=== PATIENT | female | born 1995 | race Caucasian/White ===

== ENCOUNTER → 2020-01-26 | Outpatient (CLI) | payer OTHER, SELFPAY | END | disposition home or self-care (01) | PROVIDERS: PCP Family Medicine; Referring Provider Family Medicine; Visit Provider Family Medicine | DX: Z20.828 Contact with and (suspected) exposure to other viral communicable diseases (principal) | CPT/HCPCS: 87635; U0003 ==

== ENCOUNTER → 2020-09-09 | Outpatient (CLI) | payer BC, OTHER, SELFPAY ==
[2020-09-12 16:34] LABS: HPV APTIMA, High Risk Negative (Negative)
[2020-09-12 16:35] LABS: HPV Reflexed? YES, CHARGE PATIENT
== END | disposition home or self-care (01) ==
PROVIDERS: PCP Family Medicine; Visit Provider Nurse Practitioner Family
DX: Z01.419 Encounter for gynecological examination (general) (routine) without abnormal findings (principal)
CPT/HCPCS: 87624; 88175; G0145

== ENCOUNTER → 2020-09-19 08:08 | Outpatient (CLI) | payer BC, OTHER, SELFPAY ==
[2020-09-19 10:29] LABS: Anion Gap 8 (5-15); BUN 14 mg/dL (7-18); BUN/Creat Ratio 18.1 RATIO (10-20); Chloride 105 mmol/L (98-107); Cholesterol 225 mg/dL (200); Creatinine, Serum 0.77 mg/dL (0.55-1.02); EST Glomerular Filtration Rate 96 mL/min (>60); Est Glom Filt Rate - Afr Amer 116 mL/min (>60); Glucose 97 mg/dL (74-106); High Density Lipoprotein 52 mg/dL; Potassium 3.9 mmol/L (3.5-5.1); Sodium Level 139 mmol/L (136-145); Triglycerides 56 mg/dL; Very Low Density Lipoprotein 11 mg/dL (5-40)
== END ==
PROVIDERS: PCP Family Medicine; Referring Provider Family Medicine; Visit Provider Nurse Practitioner Family
DX: Z13.1 Encounter for screening for diabetes mellitus (principal); Z13.220 Encounter for screening for lipoid disorders
CPT/HCPCS: 36415; 80048; 80061

== ENCOUNTER → 2022-02-26 | Outpatient (CLI) | payer BC, SELFPAY ==
[2022-02-26 17:45] LABS: Amphetamine Urine VISTA NEGATIVE (<1000 ng/mL); Barbiturate Urine VISTA NEGATIVE (< 200 ng/mL); Benzodiazepine Urine VISTA NEGATIVE (< 200 ng/mL); Cocaine Urine VISTA NEGATIVE (< 300 ng/mL); Ecstacy Urine VISTA NEGATIVE (< 500 ng/mL); Methadone Urine VISTA NEGATIVE (< 300 ng/mL); PCP Urine VISTA NEGATIVE (< 25 ng/mL); THC Urine VISTA NEGATIVE (< 50 ng/mL); Vista UDS pH Range 6
[2022-03-02 21:07] LABS: Chlamydia By Nucleic Acid AMP Negative (Negative)
[2022-03-03 14:18] LABS: Gonococcus By Nucleic Acid AMP Negative (Negative)
[2022-03-06 11:10] LABS: HPV Reflexed? NOT INDICATED
== END | disposition home or self-care (01) ==
LOC: LABSPEC 16:55
PROVIDERS: PCP Family Medicine; Visit Provider Obstetrics & Gynecology
DX: Z34.00 Encounter for supervision of normal first pregnancy, unspecified trimester (principal); Z12.4 Encounter for screening for malignant neoplasm of cervix
CPT/HCPCS: 80307; 87086; 87088; 87491; 87591; 88175; G0145

== ENCOUNTER → 2022-03-17 | Outpatient (CLI) | payer BC, SELFPAY ==
--- NOTE | 2022-03-17 15:07 | US_ITS ---
STUDY: FIRST TRIMESTER OBSTETRICAL ULTRASOUND REASON FOR EXAM: Female, 26 years old. well being. Viability. Intermittent vaginal spotting. LMP: Established LMP of December 14, 2021. TECHNIQUE: Transabdominal TECHNICAL QUALITY: Examination limited by bowel gas. PRIOR ULTRASOUND: None. FINDINGS: There is visualization of a single gestational sac in a normal intrauterine position. The mean sac diameter (MSD) measures 5.8 cm, indicating an estimated gestational age (EGA) of 11 weeks, 6 days. The gestational sac shape is within normal limits. There is no demonstrated yolk sac. There is visualization of the placenta. The placenta is posterior in location and grade 0 in appearance. There is visualization of a live embryo. The crown-rump length (CRL) measures 7.05 cm, indicating an estimated gestational age (EGA) of 13 weeks, 2 days. There is demonstrated cardiac activity with a heart rate of 153 bpm. The estimated gestation age (EGA) by LMP is 13 weeks, 2 days. The estimated date of delivery (MARCO) by LMP is September 20, 2022. The estimated gestation age (EGA) by US is 12 weeks, 4 days. The estimated date of delivery (MARCO) by US is September 25, 2022. The uterus measures 10.6 x 8.5 x 8.0 cm. There is no demonstrated uterine fibroid. The cervix is closed. The right ovary measures 3.9 x 4.1 x 4.5 cm. There is a 3.2 x 2.8 x 3.5 cm cyst. Question corpus luteum cyst. There is no visualized right adnexal mass or complex lesion. Oral vascularity and Doppler imaging. The left ovary is obscured by bowel gas. There is no visualized left adnexal mass or complex lesion. There is no fluid in the cul de sac. US/Init OB < 14Wks US IMPRESSION: 1. Live single intrauterine at 12 weeks 4 days. MARCO is September 25, 2022. 2. heart rate of 153 bpm. 3. Posterior grade 0 placenta. 4. Question right ovarian corpus luteum cyst. Electronically Signed: Jaden Vergara DO at 16:38 EST Reading Location ID and State: [facility] / [place] Tel [phone], Service support ,
[2022-03-17 15:17] LABS: Absolute Lymphocyte Count 1.77 X10^3/uL (0.83-4.51); Absolute Neutrophil Count 7.5 X10^3/uL (2.0-7.7); Basophil# 0.03 X10^3/uL; Basophil% 0.3 % (0-1); Eosinophil# 0.06 X10^3/uL; Eosinophils% 0.6 % (0-5); Hematocrit 39.7 % (37-47); Hemoglobin 13.7 g/dL (12.0-15.0); Lymphocyte # 1.77 X10^3/ul (0.83-4.51); Lymphocyte % 17.9 % (19-41); Mean Corp Hgb Conc 34.5 g/dL (32-36); Mean Corpuscular Hgb 30.8 pg (27.0-32.0); Mean Corpuscular Volume 89.2 fL (81-99); Mean Platelet Vol. 10.7 fl (6.2-12.0); Monocyte# 0.51 X10^3/uL; Monocyte% 5.2 % (0-10); NRBC Flagged by Analyzer 0 % (0-5); Neutrophil % 75.7 % (47-70); Platelet Count 267 K/mm3 (150-450); RBC Distribution Width CV 13.2 % (11.6-14.6); RBC Distribution Width SD 43.5 fl (35.1-43.9); Red Blood Count 4.45 M/mm3 (4.2-5.4); White Blood Count 9.9 K/mm3 (4.4-11.0)
[2022-03-17 15:26] LABS: Glucose Challenge Gest 1H 50g 107 mg/dL (70-140)
[2022-03-17 15:43] LABS: NATERA MAILED SPECIMEN
[2022-03-17 16:54] LABS: HIV - WCH Non-Reactive (Nonreactive); Hepatitis B Surface Antigen Non-Reactive (Nonreactive); Hepatitis C Antibody Non-Reactive (Nonreactive); Rubella IgG Reactive (Nonreactive); Syphilis Antibodies Non-reactive
== END | disposition home or self-care (01) ==
LOC: US 14:41
PROVIDERS: Obstetrics & Gynecology; PCP Family Medicine; Referring Provider Nurse Practitioner Women's Health; Visit Provider Nurse Practitioner Women's Health
DX: Z31.430 Encounter of female for testing for genetic disease carrier status for procreative management (principal); O26.859 Spotting complicating pregnancy, unspecified trimester; Z3A.00 Weeks of gestation of pregnancy not specified
CPT/HCPCS: 36415; 76801; 82950; 85025; 86703; 86762; 86780; 86803; 86850; 86900; 86901; 87340

== ENCOUNTER → 2022-06-18 | Outpatient (CLI) | payer BC, SELFPAY ==
[2022-06-18 08:13] LABS: Absolute Lymphocyte Count 1.65 X10^3/uL (0.83-4.51); Basophil# 0.04 X10^3/uL; Basophil% 0.4 % (0-1); Hematocrit 38.9 % (37-47); Hemoglobin 12.7 g/dL (12.0-15.0); Lymphocyte # 1.65 X10^3/ul (0.83-4.51); Lymphocyte % 15.8 % (19-41); Mean Corp Hgb Conc 32.6 g/dL (32-36); Mean Corpuscular Hgb 30.3 pg (27.0-32.0); Mean Corpuscular Volume 92.8 fL (81-99); Mean Platelet Vol. 10.8 fl (6.2-12.0); Monocyte# 0.55 X10^3/uL; Monocyte% 5.3 % (0-10); NRBC Flagged by Analyzer 0 % (0-5); Neutrophil % 76.5 % (47-70); Platelet Count 261 K/mm3 (150-450); RBC Distribution Width CV 13.5 % (11.6-14.6); RBC Distribution Width SD 45.8 fl (35.1-43.9); Red Blood Count 4.19 M/mm3 (4.2-5.4); White Blood Count 10.4 K/mm3 (4.4-11.0)
[2022-06-18 08:47] LABS: Glucose Challenge Gest 1H 50g 120 mg/dL (70-140)
[2022-06-18 09:22] LABS: HIV - WCH Non-Reactive (Nonreactive); Syphilis Antibodies Non-reactive
== END | disposition home or self-care (01) ==
LOC: PAVLAB 07:46
PROVIDERS: PCP Family Medicine; Referring Provider Obstetrics & Gynecology; Visit Provider Obstetrics & Gynecology
DX: Z34.00 Encounter for supervision of normal first pregnancy, unspecified trimester (principal); Z13.1 Encounter for screening for diabetes mellitus
CPT/HCPCS: 36415; 82950; 85025; 86703; 86780

== ENCOUNTER → 2022-08-28 | Outpatient (CLI) | payer BC, SELFPAY | END | disposition home or self-care (01) | PROVIDERS: PCP Family Medicine; Visit Provider Advanced Practice Midwife | DX: Z34.00 Encounter for supervision of normal first pregnancy, unspecified trimester (principal) | CPT/HCPCS: 87081 ==

== ENCOUNTER 2022-09-21 13:25 | Inpatient (IN) | payer BC, SELFPAY ==
[2022-09-21] VITALS (49 sets, daily range): BP systolic 80–189; BP diastolic 49–134; PULSE 65–231; TEMP 35.7–36.9; O2SAT 80–100; BMI 34.8
[2022-09-21 13:12] LABS: ROM Internal Control Test YES-OK TO RESULT pt. (Internal QC); Record Kit Lot#, ROM+ K1374
[2022-09-21 13:15] LABS: ROM Patient Test POSITIVE (Negative)
[2022-09-21] MEDS: Lactated Ringers 1,000 ML 50 ML IV ×2 (14:15→21:50)
--- NOTE | 2022-09-21 14:36 | HP.PCM.OB_ITS ---
HPI - General General Date of Admission: 09/21/22 HPI Narrative NICOLETTE CODY, is a 27 F who presents at 40+1 with LOF at 10:30am with yellow/green fluid. active fetus. pt with contractions with increasing intensity. denies vaginal bleeding. course complicated by obesity and abnormal carrier screening (FOB negative) Maternal Data Information MARCO Calculator Estimated Delivery Date Method Current WG Current Estimate 09/20/22 LMP (Certain) 40w 1d Other Estimates 09/15/22 Ultrasound #1 40w 6d PFSH PFSH Medical History Concussion Home Medications multivitamin no.47-iron fum 27 mg-folate no.1 1 mg-dha 300 mg capsule (PNV-DHA) 1 cap PO DAILY 02/19/22 [History Last Taken 09/20/22 08:00] Allergy/AdvReac Type Severity Reaction Status Date / Time No Known Allergies Allergy Verified 09/21/22 12:39 Family History Sister Cervical cancer, Onset Age: 19 Grandfather Brain cancer, Onset Age: 70 maternal Mother Arthritis Surgical History History of bunionectomy Social History adopted: No household members: spouse housing: house current occupational status: employed 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 current occupational exposures/hazards: No pets and animals: Yes (not managing the litterbox) pets and animals: cat(s) and dog(s) history of recent travel: No sexually active: Yes Smoking Status: Never smoker alcohol intake: former details: ocassional not while substance use type: does not use well-balanced diet: daily or most days caffeine: Yes Type: coffee Number of servings: 1 eating out: 1-3 times/week during the past year weight has: remained stable what type of physical activity do you participate in: none lisbet/mandaen: None seatbelt use: always do you feel safe at home: Yes additional social history: Doug jeronimo History 1 Elective abortions Hx Para 0 Spontaneous abortions Hx # Term Pregnancies Ectopic pregnancies Hx # Pregnancies Multiple births # of living children Visit Details Expected Delivery Route/Plan Labor Preferences- CB/BF classes: [] labor support person: [] labor intervention preferences: [] pain management options preferred:no epidural unless needed. cut cord/dad catch: [] : wants PP control planned: [] discussed possible routes of delivery and associated risks: [] special requests: [] Plans Covid status: vaccinated Flu vaccine: today Tdap vaccine: given Rhogam: na LARC form signed: movement and labor precautions reviewed. Problem list reviewed and updated with the most current plan of care details and appropriate orders placed. Relevant counseling for the gestational age provided. Continue routine care and follow up unless otherwise noted in visit notes/problem list details OB Flowsheet Initial Weight: Not Recorded Date -?-?-?-?-?-?-?-?-?-?-?-?- EGA Weight BP Urine Prot -?-?-?-?-?-?-?-?-?-?-?-?- Glucose FHR FuHt Pres Dilation -?-?-?-?-?-?-?-?-?-?-?-?- Effaced St Visit Note 02/26/22 -?-?-?-?-?-?-?-?-?-?-?-?- 10w 4d 179 lb 6 oz 126/83 126/83 -?-?-?-?-?-?-?-?-?-?-?-?- 168 -?-?-?-?-?-?-?-?-?-?-?-?- JV- CRL consiste nt with LMP. MARCO 09/20/22. single IUP. Flu shot today. 03/27/22 -?-?-?-?-?-?-?-?-?-?-?-?- 14w 5d 178 lb 123/79 Negative -?-?-?-?-?-?-?-?-?-?-?-?- Negative 154 -?-?-?-?-?-?-?-?-?-?-?-?- JV- normal nipt, abnormal carrier. FOB to get tested 04/24/22 -?-?-?-?-?-?--?-?-?-?-?-?- 18w 5d 181 lb 127/75 Negative -?-?-?-?-?-?-?-?-?-?-?-?- Negative 140 -?-?-?-?-?-?-?-?-?-?-?-?- Sm- no vb lof go od fm no regular ctx 05/22/22 -?-?-?-?-?-?-?-?-?-?-?-?- 22w 5d 184 lb 2 oz 115/70 Nega tive -?-?-?-?-?-?-?-?-?-?-?-?- Negative 147 -?-?-?-?-?-?-?-?-?-?-?-?- JV- no lof, vagi nal bleeding, or cramping. GCT ordered. 06/19/22 -?-?-?-?-?-?-?-?-?-?-?-?- 26w 5d 188 lb 6 oz 111/71 -?-?-?-?-?-?-?-?-?-?-?-?- 144 27 -?-?-?-?-?-?-?-?-?-?-?-?- JV- no lof, vagi nal bleeding, or dec fm. normal GCT. 07/03/22 -?-?-?-?-?-?-?-?-?-?-?-?- 28w 5d 189 lb 8 oz 112/77 Nega tive -?-?-?-?-?-?-?-?-?-?-?-?- Negative 150 29 -?-?-?-?-?-?-?-?-?-?-?-?- SM- no vb lof go od fm no regular ctx tdap today 07/17/22 -?-?-?-?-?-?-?-?-?-?-?-?- 30w 5d 190 lb 6 oz 117/83 Nega tive -?-?-?-?-?-?-?-?-?-?-?-?- Negative 150 31 -?-?-?-?-?-?-?-?-?-?-?-?- SM- no vb lof go od fm no reuglar ctx 07/31/22 -?-?-?-?-?-?-?-?-?-?-?-?- 32w 5d 193 lb 4 oz 117/83 Nega tive -?-?-?-?-?-?-?-?-?-?-?-?- Negative 145 32 -?-?-?-?-?-?-?-?-?-?-?-?- JV- no lof, vagi nal bleeding, or dec fm. no complaints today 08/14/22 -?-?-?-?-?-?-?-?-?-?-?-?- 34w 5d 194 lb 112/78 Negative -?-?-?-?-?-?-?-?-?-?-?-?- Negative 145 35 -?-?-?-?-?-?-?-?-?-?-?-?- SM- no vb lof go od fm no regular ctx 08/28/22 -?-?-?-?-?-?-?-?-?-?-?-?- 36w 5d 197 lb 2 oz 124/89 Trac e -?-?-?-?-?-?-?-?-?-?-?-?- Negative 140 37 Cephalic -?-?-?-?-?-?-?-?-?-?-?-?- KW- +FM. no lof/ vb/ctx. GBS done. labor precautions today. 09/04/22 -?-?-?-?-?-?-?-?-?-?-?-?- 37w 5d 201 lb 2 oz 120/83 Nega tive -?-?-?-?-?-?-?-?-?-?-?-?- Negative 140 38 Cephalic -?-?-?-?-?-?-?-?-?-?-?-?- Sm- no vb lof no reuglar ctx 09/11/22 -?-?-?-?-?-?-?-?-?-?-?-?- 38w 5d 200 lb 1 oz 133/79 Nega tive -?-?-?-?--?-?-?-?-?-?-?-?- Negative 150 38 Cephalic -?-?-?-?-?-?-?-?-?-?-?-?- JV- pt declines pelvic exam. no lof, vaginal bleeding, or dec fm. 09/18/22 -?-?-?-?-?-?-?-?-?-?-?-?- 39w 5d 203 lb 4 oz 133/79 Nega tive -?-?-?-?-?-?-?-?-?-?-?-?- Negative 130 39 Cephalic 0 -?-?-?-?-?-?-?-?-?-?-?-?- SM- no vb lof go od fm no regular ctx discussed IOL by 41 ROS Cardiovascular Cardiovascular: Denies abdominal pain, chest pain, diaphoresis or dyspnea Respiratory/Chest Respiratory/Chest: Denies change in mental status, chest congestion, chest tightness, cough, shortness of breath at rest, shortness of breath with exertion, breast mass, breast pain, breast skin changes, breast swelling, change in breast shape or nipple discharge Genitourinary Genitourinary: Reports change in urinary stream Musculoskeletal Musculoskeletal: Reports none Integumentary Integumentary: Reports none Neurologic Neurologic: Reports none Psychiatric Psychiatric: Reports none Endocrine Endocrinology: Reports none Hematologic/Lymphatic Hematologic/Lymphatic: Reports none Allergic/Immunologic Allergic/Immunologic: Reports none Vital Signs Vital Signs Vital Signs: 09/21/22 12:45 09/21/22 12:45 09/21/22 12:45 Temperature Temperature Source Temporal Pulse Rate 91 Blood Pressure BP Systolic BP Diastolic Pulse Ox 98 09/21/22 12:45 09/21/22 12:45 09/21/22 12:47 Temperature 97.9 F Temperature Source Pulse Rate Blood Pressure 115/77 BP Systolic 115 BP Diastolic 77 Pulse Ox 98 09/21/22 12:47 09/21/22 13:45 09/21/22 13:45 Temperature Temperature Source Pulse Rate 78 66 Blood Pressure 114/74 BP Systolic 114 BP Diastolic 74 Pulse Ox Weight Weight: 203 lb Body Mass Index (BMI) 34.8 Physical Exam Const alert, oriented x3 and no apparent distress General Appearance: cooperative, comfortable and well kempt Orientation / Consciousness: awake and oriented to person Exam Limitations: no limitations HEENT normocephalic Neck full ROM Chest inspection of chest normal Resp normal respiratory effort, normal air movement and no retractions Effort and Inspection: able to speak in complete sentences and symmetric chest movement Cardio regular rate Peripheral Pulses: pulses 2+ throughout GI normal to inspection, nondistended, normoactive bowel sounds Inspection: gravid no CVA tenderness and appearance of the vagina normal External Female Exam: normal appearance of the urethra; Negative for external lesion OB / External & Speculum: external exam normal Manual OB Exam: estimated gestational size appropriate and presentation cephalic Uterus Palpation: Negative for uterus tender Extremity normal to inspection Skin no rashes or lesions noted Neuro deep tendon reflexes 2+ bilaterally and gait normal Motor Exam: strength 5/5 throughout and clonus absent Psych Activity / Motor Behavior: appropriate eye contact Speech: normal speech Labs Labs Labs: Blood Type A POSITIVE Antibody Screen NEGATIVE Hct 40.6 % (37-47) Hgb 13.2 g/dL (12.0-15.0) Pap Smear Negative Obstetrics US Syphilis Total Ab Non-reactive Rubella IgG Antibody Reactive (Nonreactive) Hep Bs Antigen Non-Reactive (Nonreactive) Chlamydia DNA (CED) Negative (Negative) Neisseria gonorrhoeae DNA (CED) Negative (Negative) HIV 1&2 Antibody Non-Reactive (Nonreactive) Glucose 1 Hr 50 gm 120 mg/dL (70-140) Assessment & Plan (1) SROM (spontaneous rupture of membranes): COMMENT: 10:30am at yellow/green fluid. +ROM plus ?meconium, will have pedi at delivery (2) Abnormal test: COMMENT: carrire for Hightower- Lemli- Opitz syndrome. FOB test and negative 03/30 (3) Obesity affecting : COMMENT: early gct ordered - normal (4) Supervision of normal first : COMMENT: PRR , MARCO 09/20/22, surprise Doug (5) : QUALIFIERS: Weeks of gestation: 39 weeks Qualified Code(s): Z3A.39 - 39 weeks gestation of COMMENT: GBS neg, NIPT low risk, Carrier neg. Fiwxv-Pvcoh-Ctwnv Syndrome (FOB to be tested) if positive has increased risk of cleft palate and other problems.05/11 nl anatomy, 06/18 nl GCT (6) Spontaneous onset of labor: PLAN: augmentation with pitocin PRN PLAN: Plan updated on admission, exam and POC. agrees with midwifery primary management of care.
[2022-09-21 15:03] LABS: Absolute Lymphocyte Count 1.87 X10^3/uL (0.83-4.51); Absolute Neutrophil Count 8.6 X10^3/uL (2.0-7.7); Basophil# 0.03 X10^3/uL; Basophil% 0.3 % (0-1); Eosinophil# 0.02 X10^3/uL; Eosinophils% 0.2 % (0-5); Hematocrit 40.6 % (37-47); Hemoglobin 13.2 g/dL (12.0-15.0); Lymphocyte # 1.87 X10^3/ul (0.83-4.51); Lymphocyte % 16.8 % (19-41); Mean Corp Hgb Conc 32.5 g/dL (32-36); Mean Corpuscular Hgb 27.8 pg (27.0-32.0); Mean Corpuscular Volume 85.7 fL (81-99); Mean Platelet Vol. 12.5 fl (6.2-12.0); Monocyte# 0.53 X10^3/uL; Monocyte% 4.8 % (0-10); NRBC Flagged by Analyzer 0 % (0-5); Neutrophil # 8.58 X10^3/uL (2.7-7.7); Neutrophil % 77.3 % (47-70); Platelet Count 256 K/mm3 (150-450); RBC Distribution Width CV 14.6 % (11.6-14.6); RBC Distribution Width SD 45.4 fl (35.1-43.9); Red Blood Count 4.74 M/mm3 (4.2-5.4); White Blood Count 11.1 K/mm3 (4.4-11.0)
[2022-09-21 16:28] LABS: Syphilis Antibodies Non-reactive
[2022-09-21] MEDS: LACTATED RINGERS 500 ML 999 ML IV ×2 (17:00→18:55)
[2022-09-21] MEDS: fentaNYL 100 MCG/2 ML Ampul IV (17:37)
[2022-09-21] MEDS: fentaNYL-bupivacaine (epidural) 100 ML BAG EPIDURAL ×2 (17:49→21:55)
[2022-09-22] VITALS (50 sets, daily range): BP systolic 93–130; BP diastolic 52–80; PULSE 65–115; RESP 15–18; TEMP 36.7–37.4; O2SAT 87–100
[2022-09-22] MEDS: Lactated Ringers 1,000 ML 200 ML IV (02:51)
[2022-09-22] MEDS: fentaNYL-bupivacaine (epidural) 100 ML BAG EPIDURAL (03:04)
[2022-09-22] MEDS: Oxytocin 15 Units/NS 250ml 15 UNITS/250 ML IV.SOLN 2 UNITS IV (03:45)
[2022-09-22] MEDS: Oxytocin 10 UNITS/ML Vial IM (04:18)
--- NOTE | 2022-09-22 04:30 | EX.PCM.OBRPT ---
Assessment & Plan (1) (spontaneous vaginal delivery): COMMENT: SROM/IAL. at 40+2. boy:[place]. ZAFAR Maternal Data Information MARCO Calculator Estimated Delivery Date Method Current WG Current Estimate 09/20/22 LMP (Certain) 40w 2d Other Estimates 09/15/22 Ultrasound #1 41w 0d Final MARCO: 09/20/22 Final MARCO Source: LMP Gestational age: 40+2 Vaginal Delivery Maternal Presentation Maternal Presentation: Spontaneous Rupture of Membranes Operative Information Date of Procedure: 09/22/22 Pre-Operative Diagnosis: see problem list Post-Operative Diagnosis: Surgery / Procedure Performed: Spontaneous Vaginal Delivery Type of Anesthesia: Epidural Estimated Blood Loss: 200 Time of Delivery: 03:59 Findings Description of Procedure: Patient began pushing and delivered the head in the BERRY presentation. The head was delivered atraumatically. The anterior and posterior shoulders delivered without complication followed by the rest of the and the was placed on the maternal abdomen. Delayed cord clamping was employed for approximately 3 minutes. Cord was clamped and cut and gentle traction was applied to the cord and the placenta delivered spontaneously immediately following it was noted to be intact with three-vessel cord. The perineum and vagina were inspected and noted to have first degree laceration, repaired with 3-0 SH. EBL was 200cc. Patient and infant tolerated delivery well. Presentation: Vertex and BERRY Amniotic Membrane Rupture Type: Spontaneous Time of Membrane Rupture: 1030 Amniotic Fluid Description: Lightly stained meconium Placental Delivery Description: Spontaneous Placenta Disposition: [facility] Cord Vessel Description: 3 Vessels Cord Entanglement: None A Gender: Male (1 minute): 9 (5 minute): 9 Post Vaginal Delivery Medications Given After Delivery: IV Pitocin and IM Pitocin Episiotomy Description: None Laceration: 1st degree Complication Complications: None Addendum Addendum: CNM delivery
--- NOTE | 2022-09-22 04:34 | DCINST_ITS ---
Discharge Instructions Diet Discharge Diet: No restrictions Activity Discharge Activity: May Not Drive and May Shower May resume sexual activity in: 6 weeks Weight Bearing Status: Full weight bearing Dressing / Incision Call your doctor if your incision/area has: Sudden Increased Bleeding, Increased Pain/ Swelling and Foul Smelling Discharge Call your doctor if you observe: Fever of 101 or Higher, Numbness or Tingling, Change in Color, Inability to urinate, Inability to have a bowel movement, Using more than 1 pad per hour, Shortness of breath, Dizziness, Fainting spells, Chest pain, Calf discomfort and Uncontrolled pain Follow Up Care Please Follow Up With: Christina Powell CNM When: 6 weeks , please call office to make an appointment. Congratulations on the of your baby BOY!! Test Results: Test results from this visit will be discussed in further detail at your follow- up appointment, if applicable. Discharge Plan Admission Admit Date/Time: 09/21/22 13:25 Attending Provider: Christina Powell Primary Care Provider: Allen Hines Discharge Orders/Prescriptions Prescriptions: No Action PNV-DHA 27 mg iron-1 mg -300 mg capsule 1 cap PO DAILY Referrals / Follow Up: Allen Hines MD [Primary Care Provider] -
[2022-09-22] MEDS: Oxytocin 15 Units/NS 250ml 15 UNITS/250 ML IV.SOLN 83 UNITS IV (04:47)
[2022-09-22] MEDS: Acetaminophen 500 MG Tablet 1000 MG PO (09:08)
[2022-09-22] MEDS: Benzocaine/Lanolin/Aloe Vera 1 SPRAY EACH TOPICAL (17:24)
[2022-09-22] MEDS: Naproxen 500 MG Tablet PO (23:19)
[2022-09-23] VITALS (8 sets, daily range): BP systolic 107–118; BP diastolic 60–75; PULSE 59–111; RESP 14–18; TEMP 36.4–36.6; O2SAT 82–98
[2022-09-23] MEDS: Acetaminophen 500 MG Tablet 1000 MG PO (04:33)
--- NOTE | 2022-09-23 08:50 | PCM.PN.OB ---
Subjective Subjective Patient doing well without complaints. Tolerating PO. Ambulating and voiding without difficulty. Feeding well. Denies chest pain, shortness of breath, calf pain/swelling, fevers, chills, lightheadedness. Objective Data Objective Data Vital Signs: Vital Signs Temp Pulse Resp BP Pulse Ox O2 Del Method 97.5 F L 83 18 118/75 97 Room Air 09/23/22 08:43 09/23/22 08:40 09/23/22 08:43 09/23/22 08:40 09/23/22 04:26 09/23/22 04:26 Oxygen Delivery Method Room Air Weight: 203 lb Body Mass Index (BMI) 34.8 Intake & Output: Intake and Output for Last 24 Hours 09/21/22 09/22/22 09/23/22 23:59 23:59 23:59 Intake Total 1580.34 / 1580.34 1482.34 / 1482.34 800 / 800 Output Total 1300 / 1300 Balance 1580.34 / 1580.34 182.34 / 182.34 800 / 800 Lab / Micro Data Attestation: I reviewed the patient's lab results. Result Diagrams: 09/21/22 14:15 ROS Constitutional Constitutional: Reports systems reviewed and no addt'l complaints, except as documented; Denies anorexia or headache(s) Cardiovascular Cardiovascular: Reports systems reviewed and no addt'l complaints, except as documented; Denies dizziness, dyspnea, nausea or tachypnea Respiratory/Chest Respiratory/Chest: Reports systems reviewed and no addt'l complaints, except as documented; Denies cough, dyspnea, shortness of breath at rest or tachypnea Gastrointestinal Gastrointestinal: Reports systems reviewed and no addt'l complaints, except as documented; Denies abdominal pain, constipation or nausea Genitourinary Genitourinary: Reports systems reviewed and no addt'l complaints, except as documented; Denies burning urination, difficulty urinating, dysuria, urinary frequency or urinary incontinence Musculoskeletal Musculoskeletal: Reports systems reviewed and no addt'l complaints, except as documented Integumentary Integumentary: Reports systems reviewed and no addt'l complaints, except as documented Neurologic Neurologic: Reports systems reviewed and no addt'l complaints, except as documented; Denies abnormal speech, dizziness or headache(s) Psychiatric Psychiatric: Reports systems reviewed and no addt'l complaints, except as documented Endocrine Endocrinology: Reports systems reviewed and no addt'l complaints, except as documented Hematologic/Lymphatic Hematologic/Lymphatic: Reports systems reviewed and no addt'l complaints, except as documented Physical Exam Const alert, oriented x3 and no apparent distress Neck full ROM Resp normal respiratory effort, normal air movement and no retractions Effort and Inspection: able to speak in complete sentences and symmetric chest movement GI soft to palpation Bladder / Kidney Exam: bladder normal to palpation Uterus Palpation: uterus fundus firm (U1) Extremity normal to inspection and full ROM Psych mental status grossly normal, thought process normal and cooperative Assessment & Plan (1) (spontaneous vaginal delivery): COMMENT: SROM/IAL. at 40+2. boy:[place]. PLAN: s/p PPD # 1 1. routine post delivery care 2. breast feeding- support given 3. rh positive 4. rubella immune 5. Discharge home (2) Obesity affecting : COMMENT: early gct ordered - normal (3) Supervision of normal first : COMMENT: PRR , MARCO 09/20/22, surprise Doug (4) Spontaneous onset of labor: Charges/Coding Multi Select Codes Urinary/Genital Urinary/Genital CPT Codes: No Charge
--- NOTE | 2022-09-23 09:03 | DCINST_ITS ---
Discharge Instructions Diet Discharge Diet: No restrictions Activity May resume sexual activity in: 6 weeks Weight Bearing Status: Full weight bearing Dressing / Incision Call your doctor if your incision/area has: Sudden Increased Bleeding, Increased Pain/ Swelling and Foul Smelling Discharge Call your doctor if you observe: Fever of 101 or Higher, Numbness or Tingling, Change in Color, Inability to urinate, Inability to have a bowel movement, Using more than 1 pad per hour, Shortness of breath, Dizziness, Fainting spells, Chest pain, Calf discomfort and Uncontrolled pain Follow Up Care Please Follow Up With: Christina Powell CNM Test Results: Test results from this visit will be discussed in further detail at your follow- up appointment, if applicable. Discharge Plan Admission Admit Date/Time: 09/21/22 13:25 Attending Provider: Christina Powell Primary Care Provider: Allen Hiens Discharge Orders/Prescriptions Prescriptions: No Action PNV-DHA 27 mg iron-1 mg -300 mg capsule 1 cap PO DAILY Referrals / Follow Up: Allen Hines MD [Primary Care Provider] - Disposition Disposition (needs filled in before D/C Order can be placed): Home, Self Care
== END 2022-09-23 14:35 | disposition home or self-care (01) | DRG 807 ==
LOC: WPOUT 13:27 → WP 09-22 04:05
PROVIDERS: Admitting Provider Registered Nurse; PCP Family Medicine; Referring Provider Registered Nurse; Visit Provider Registered Nurse
DX: O42.92 Full-term premature rupture of membranes, unspecified as to length of time between rupture and onset of labor (principal); Z37.0 Single live birth; O70.0 First degree perineal laceration during delivery; O99.824 Streptococcus B carrier state complicating childbirth; O77.0 Labor and delivery complicated by meconium in amniotic fluid; O99.214 Obesity complicating childbirth; Z3A.40 40 weeks gestation of pregnancy; Z14.8 Genetic carrier of other disease
CPT/HCPCS: 59025; 59050; 84112; 85025; 86780; 86850; 86900; 86901; 99221; J7120; G0378

== ENCOUNTER → 2023-05-20 | Outpatient (CLI) | payer BC, SELFPAY ==
[2023-05-20 18:06] LABS: hCG Titer Quant., Serum 517 mIU/mL (1-3)
== END | disposition home or self-care (01) ==
LOC: LAB 16:21
PROVIDERS: PCP Family Medicine; Referring Provider Obstetrics & Gynecology; Visit Provider Obstetrics & Gynecology
DX: N92.0 Excessive and frequent menstruation with regular cycle (principal)
CPT/HCPCS: 36415; 84702

== ENCOUNTER → 2023-05-21 | Outpatient (CLI) | payer BC, SELFPAY ==
--- NOTE | 2023-05-21 07:30 | US_ITS ---
STUDY: FIRST TRIMESTER OBSTETRICAL ULTRASOUND REASON FOR EXAM: Female, 27 years old spotting LMP: April 09, 2023. TECHNIQUE: Transvaginal TECHNICAL QUALITY: Adequate. PRIOR ULTRASOUND: None. FINDINGS: There is visualization of a single gestational sac in a normal intrauterine position. The mean sac diameter (MSD) measures 2 mm, indicating an estimated gestational age (EGA) of 4 weeks, 6 days. There is no demonstrated yolk sac. The placenta is non-visualized. There is no demonstrated embryo ( pole). The estimated gestation age (EGA) by LMP is 6 weeks, 0 days. The estimated date of delivery (MARCO) by LMP is January 14, 2024. The estimated gestation age (EGA) by US is 4 weeks, 6 days. The estimated date of delivery (MARCO) by US is January 23, 2024. The uterus measures 9.3 cm x 4.9 cm x 4 cm. There is no demonstrated uterine fibroid. The cervix is closed. The right ovary measures 2.4 cm x 2.1 cm x 2 cm. A follicle is seen within the right ovary measuring 1.2 cm x 1.1 cm x 1.1 cm.. There is no right ovarian cyst. There is no visualized right adnexal mass or complex lesion. The left ovary measures 2 cm x 2.4 cm x 1.4 cm. There is no left ovarian cyst. There is no visualized left adnexal mass or complex lesion. There is no fluid in the cul de sac. US/Transvaginal w/Preg US IMPRESSION: Intrauterine gestational sac without yolk sac or pole. This may represent an early intrauterine gestation versus spontaneous . Correlation with serial beta hCGs recommended. Electronically Signed: Axel Santos MD at 8:34 EST ,
--- OUTSIDE RECORDS SUMMARY | 2023-05-21 07:31 | XMS RPT_ITS | CCD ---
Author Name Unknown Address [address] [place] [address] [address] [place] [id number] Organization [facility] Care Team Providers Care Autopsy Assistant Name Role Phone NO PRIMARY CARE, Primary Care Unavailable SABINA SANDOVAL Referring Unavailab EMIR Velasquez Attending Unavailable Encounters Encounter Date Encounter Type Care Provider Facility Start: 04-27-2022 End: 04-27-2022 ambulatory NO PRIMARY CARE [facility] Payers Date Payer Category Payer Unknown [id number]. [id number] Unknown [id number] Summary Purpose Family History No Family History Records Found Advance Directives No Advanced Directives Records Found Additional Source Comments INFORMATION SOURCE (unrecogn ized section and content) FOR RECORDS PERTAINING TO PATIENTS WHO ARE OR HAVE BEEN ENROLLED IN A CHEMICAL DEPENDENCY/SUBSTANCEABUSE PROGRAM, SOME INFORMATION MAY BE OMITTED. This clinical summary was aggregated from multiple sources. Caution should be exercised in using it in the provision of clinical care. This summary normalizes information from multiple sources, and as a consequence, information in this document may materially change the coding, format and clinical context of patient data. In addition, data may be omitted in some cases. CLINICAL DECISIONS SHOULD BE BASED ON THE PRIMARY CLINICAL RECORDS. [employer] provides no warranty or guarantee of the accuracy or completeness of information in this document.
== END | disposition home or self-care (01) ==
PROVIDERS: PCP Family Medicine; Referring Provider Obstetrics & Gynecology; Visit Provider Obstetrics & Gynecology
DX: N92.0 Excessive and frequent menstruation with regular cycle (principal)
CPT/HCPCS: 76817

== ENCOUNTER → 2023-05-22 | Outpatient (CLI) | payer BC, SELFPAY ==
--- OUTSIDE RECORDS SUMMARY | 2023-05-22 16:12 | XMS RPT_ITS | CCD ---
Author Name Unknown Address [address] [place] [address] [address] [place] [id number] Organization [facility] Care Team Providers Care Internal Grinding Machine Operator Name Role Phone NO PRIMARY CARE, Primary Care Unavailable SABINA SANDOVAL Referring Unavailab EMIR Velasquez Attending Unavailable Encounters Encounter Date Encounter Type Care Provider Facility Start: 04-27-2022 End: 04-27-2022 ambulatory NO PRIMARY CARE [facility] Payers Date Payer Category Payer Unknown [id number]. [id number] Unknown [id number] Summary Purpose Family History No Family History [...] BE BASED ON THE PRIMARY CLINICAL RECORDS. [employer] provides no warranty or guarantee of the accuracy or completeness of information in this document.
[2023-05-22 17:04] LABS: hCG Titer Quant., Serum 508 mIU/mL (1-3)
== END | disposition home or self-care (01) ==
PROVIDERS: PCP Family Medicine; Referring Provider Obstetrics & Gynecology; Visit Provider Obstetrics & Gynecology
DX: N92.0 Excessive and frequent menstruation with regular cycle (principal)
CPT/HCPCS: 36415; 84702

== ENCOUNTER → 2023-05-24 | Outpatient (CLI) | payer BC, SELFPAY ==
--- OUTSIDE RECORDS SUMMARY | 2023-05-24 17:53 | XMS RPT_ITS | CCD ---
Author Name Unknown Address [address] [place] [address] [address] [place] [id number] Organization [facility] Care Team Providers Care Rn Radiation Oncology Name Role Phone NO PRIMARY CARE, Primary Care Unavailable SABINA SANDOVAL Referring Unavailab EMIR Velasquez Attending Unavailable Encounters Encounter Date Encounter Type Care Provider Facility Start: 04-27-2022 End: 04-27-2022 ambulatory NO PRIMARY CARE [facility] Payers Date Payer Category Payer Unknown [id number]. [id number] Unknown [id number] Summary Purpose Family History No Family History [...] BE BASED ON THE PRIMARY CLINICAL RECORDS. [employer] provides no warranty or guarantee of the accuracy or completeness of information in this document.
[2023-05-24 17:59] LABS: hCG Titer Quant., Serum 983 mIU/mL (1-3)
== END | disposition home or self-care (01) ==
LOC: LAB 16:58
PROVIDERS: PCP Family Medicine; Referring Provider Obstetrics & Gynecology; Visit Provider Obstetrics & Gynecology
DX: N92.0 Excessive and frequent menstruation with regular cycle (principal)
CPT/HCPCS: 36415; 84702

== ENCOUNTER 2023-05-25 12:10 | Day surgery (SDC) | payer BC, SELFPAY ==
[2023-05-25] VITALS (7 sets, daily range): BP systolic 93–128; BP diastolic 48–70; PULSE 54–70; RESP 16–18; TEMP 36.7–37.1; O2SAT 98–100; BMI 32.1
[2023-05-25 12:49] LABS: Hematocrit 40.5 % (37-47); Hemoglobin 13.1 g/dL (12.0-15.0); Mean Corp Hgb Conc 32.3 g/dL (32-36); Mean Corpuscular Hgb 28.1 pg (27.0-32.0); Mean Corpuscular Volume 86.9 fL (81-99); Mean Platelet Vol. 10.2 fl (6.2-12.0); Platelet Count 266 K/mm3 (150-450); RBC Distribution Width CV 14.2 % (11.6-14.6); RBC Distribution Width SD 45.7 fl (35.1-43.9); Red Blood Count 4.66 M/mm3 (4.2-5.4)
[2023-05-25] MEDS: Lactated Ringers 1,000 ML 15 ML IV (12:49)
--- NOTE | 2023-05-25 13:45 | PCM.HP.OB ---
HPI - General HPI Narrative NICOLETTE CAGE, is a 27 F who presents with ectop ic seen on ultrasound, left side. patient denies any pain, she has had bleeding over the weekend, no fevers. she has had abnormal quants also. [facility] Medical History Concussion Obesity affecting Spontaneous onset of labor SROM (spontaneous rupture of membranes) Supervision of normal first (spontaneous vaginal delivery) Home Medications multivitamin no.47-iron fum 27 mg-folate no.1 1 mg-dha 300 mg capsule (PNV-DHA) 1 cap PO DAILY 02/19/22 [History Last Taken 05/24/23] Allergy/AdvReac Type Severity Reaction Status Date / Time No Known Allergies Allergy Verified 11/04/22 08:37 Family History Sister Cervical cancer, Onset Age: 19 Grandfather Brain cancer, Onset Age: 70 maternal Mother Arthritis Surgical History History of bunionectomy Social History adopted: No household members: spouse housing: house current occupational status: employed 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 current occupational exposures/hazards: No pets and animals: Yes (not managing the litterbox) pets and animals: cat(s) and dog(s) history of recent travel: No sexually active: Yes Smoking Status: Never smoker alcohol intake: former details: ocassional not while substance use type: does not use well-balanced diet: daily or most days caffeine: Yes Type: coffee Number of servings: 1 eating out: 1-3 times/week during the past year weight has: remained stable what type of physical activity do you participate in: none lisbet/yarsanism: None seatbelt use: always do you feel safe at home: Yes additional social history: Doug jeronimo History 1 Elective abortions Hx Para 0 Spontaneous abortions Hx # Term Pregnancies Ectopic pregnancies Hx # Pregnancies Multiple births # of living children 1 Past Pregnancies Del. Date Name GA/Weeks Outcome Route Bth Weight Infant Gen Labor Lgth Anesthesia Del Locatn Provider FOB 09/22/22 [place] 40 live - full term Male epidural [facility] Christina Powell [facility] Delivery Date: 09/22/22 Last Updated by: So Brown see problem list for complications ROS Constitutional Constitutional: Reports systems reviewed and no addt'l complaints, except as documented; Denies as per HPI, change in weight, fatigue, fever(s), malaise, weakness or other Eyes Eyes: Reports systems reviewed and no addt'l complaints, except as documented; Denies as per HPI, change in vision or other ENT HEENT: Reports systems reviewed and no addt'l complaints, except as documented Respiratory/Chest Respiratory/Chest: Reports systems reviewed and no addt'l complaints, except as documented Gastrointestinal Gastrointestinal: Reports systems reviewed and no addt'l complaints, except as documented and as per HPI Genitourinary Genitourinary: Reports as per HPI Musculoskeletal Musculoskeletal: Reports systems reviewed and no addt'l complaints, except as documented Neurologic Neurologic: Reports systems reviewed and no addt'l complaints, except as documented Psychiatric Psychiatric: Reports systems reviewed and no addt'l complaints, except as documented Endocrine Endocrinology: Reports systems reviewed and no addt'l complaints, except as documented Hematologic/Lymphatic Hematologic/Lymphatic: Reports systems reviewed and no addt'l complaints, except as documented Vital Signs Vital Signs Vital Signs: 05/25/23 12:51 05/25/23 12:51 Temperature 98.1 F Temperature Source Temporal Pulse Rate 70 Respiratory Rate 18 Respiratory Pattern Normal Blood Pressure 128/70 H Blood Pressure Mean 89 Blood Pressure Source Monitor Blood Pressure Position Semi-Fowlers Blood Pressure Location Right Arm Pulse Ox 100 Oxygen Delivery Method Room Air Weight Weight: 187 lb Body Mass Index (BMI) 32.1 Physical Exam Const alert, oriented x3 and no apparent distress HEENT normocephalic Head and Scalp: atraumatic Eyes EOMs intact bilaterally and conjunctivae normal Neck full ROM, no lymphadenopathy, supple and thyroid normal General: trachea midline Lymph Lymphatic: no lymphadenopathy noted Resp normal respiratory effort, no retractions and no use of accessory muscles Cardio regular rhythm GI normal to inspection, nondistended, normoactive bowel sounds, soft to palpation, non-distended and no masses Inspection: Negative for abdominal distention Back/Spine no CVA tenderness Extremity normal to inspection Skin no rashes or lesions noted Neuro moves all extremities and deep tendon reflexes 2+ bilaterally Psych mental status grossly normal Labs Labs Labs: Blood Type A POSITIVE Antibody Screen NEGATIVE Hct 40.5 % (37-47) Hgb 13.1 g/dL (12.0-15.0) Pap Smear Negative Obstetrics Ultrasound Syphilis Total Ab Non-reactive Rubella IgG Antibody Reactive (Nonreactive) Hep Bs Antigen Non-Reactive (Nonreactive) Hepatitis C Antibody Non-Reactive (Nonreactive) Chlamydia DNA (CED) Negative (Negative) N.gonorrhoeae DNA (CED) Negative (Negative) HIV 1&2 Antibody Non-Reactive (Nonreactive) Glucose 1 Hr 50 gm 120 mg/dL (70-140) Rhogam given: No Assessment & Plan (1) Ectopic : COMMENT: counseled regarding options, plan laparosocpic approach possible salpingectomy PLAN: Plan After discussing the patient's diagnosis and treatment plan options, patient wishes to proceed with surgical management. I have discussed with the patient the risks, benefits, and alternatives of the procedure which include but are not limited to risks of anesthesia, bleeding, infection, possible damage to bowel, bladder, or surrounding vasculature which could lead to additional surgery to evaluate any complications. Patient agrees to procedure and wishes to proceed. ACOG/uptodate references given for additional information regarding procedure.
--- NOTE | 2023-05-25 13:48 | EX.PCM.OBRPT ---
Assessment & Plan (1) Ectopic : COMMENT: counseled regarding options, plan laparosocpic approach possible salpingectomy PLAN: Plan After discussing the patient's diagnosis and treatment plan options, patient wishes to proceed with surgical management. I have discussed with the patient the risks, benefits, and alternatives of the procedure which include but are not limited to risks of anesthesia, bleeding, infection, possible damage to bowel, bladder, or surrounding vasculature which could lead to additional surgery to evaluate any complications. Patient agrees to procedure and wishes to proceed. ACOG/uptodate references given for additional information regarding procedure.
--- NOTE | 2023-05-25 13:49 | OP.PCM_ITS ---
Problems Associated Problem List Diagnoses (1) Ectopic : Report of Operation Date of Procedure: 05/25/23 Pre-Operative Diagnosis: see problem list Post-Operative Diagnosis: same Surgery/Procedure Performed:: laparoscopic left salpingostomy Description of Surgical Findings:: left fallopian tube ectopic Surgeon: Silvana Ellis case resolution specialist: Taylor Jeffrey Type of Anesthesia: General and Local Specimen's removed: ectopic Drains: none Estimated Blood Loss (mL): 50 Fluids Replaced: crystalloid Description of Procedure: Patient was taken in the operating room and was placed under general anesthesia was prepped and draped in normal sterile fashion in the dorsal lithotomy position. Bladder was drained of clear urine and SCDs were on preoperatively. Uterus was sounded and a uterine manipulator was placed after dilating. Attention was then paid to the abdominal portion of the procedure and the umbilicus was elevated with towel clamps and injected with Marcaine and after a 5 mm incision was made and the Veress needle was entered into the abdomen confirmed to be intra-abdominal with a low opening pressure of less than 5 mmHg. Abdomen was insufflated with CO2 gas and a 12 mm optical trocar was placed under direct visualization. A 5 mm port was placed in the right and left lower quadrant ports under direct visualization. Uterus was well visualized and there is noted to be a lef non- ruptured ectopic coming from the left fallopian tube. Blood and clot were seen in the cul-de-sac. Fallopian tube was elevated and a longitudinal incision was made across the abnormal portion of the fallopian tube and then the tube massaged, the ectopic spontaneously popped out of the tube, was removed without complication and then placed in a bag and removed through the 5 mm port site. hemostasis obtained with minimal cautery and remaining tube appeared to have good integrity without compromising the anatomy, floseal placed of the area. left sigmoid colon to side wall adhesions noted and were taken down. Liver and upper abdomen were visualized notably within normal limits and no other gross abnormalities were seen in the abdomen. All i nstruments removed from the abdomen after gas was desufflated. Remigio Alcantara was used to place a suture of 0 Vicryl through the 12 mm port site fascial incision. All port sites were closed with 3-0 Monocryl Steri's and op sites were applied. All instruments removed from the vagina and patient was awoken and taken recovery in stable condition. Grafts/Implants Used: none Complications none Admit VTE Documentation VTE Present on Admission: No VTE Mechan Device Prophylaxis: SCD's Procedures Urinary/Genital 52xxx-59xxx: 96718 Treat ectopic lapro w/ salpingectomy
--- NOTE | 2023-05-25 14:00 | FAL_PTH ---
PATHOLOGY RESULTS PATIENT: NICOLETTE CAGE LOC: [facility] [place] U#:[id number] AGE/SX: ROOM: RE05/25/[address]: Dr. Silvana Ellis MD : 1995 BED: DIS: 05/25/2023 SPEC #: [id number] RECD: 05/26/23 10:04 STATUS: EDGARDO MOROCHO #: [id number] FRANCES: 05/25/23 14:[address]: Silvana Ellis DEPT: SURGICAL PATHOLOGY RECD BY: Ghazala Costa ENTERED: 05/26/23 10:05 SP TYPE: ECTOPIC OTHR DR: Dr. Abraham Hines MD Tissues: ECTOPIC PREG Procedures: Surgery Specimen Level IV HEADER OPERATION: Laparoscopic salpingectomy, removal ectopic PRE-OP DIAGNOSIS: Ectopic TISSUE SUBMITTED: Ectopic MICROSCOPIC DIAGNOSIS Ectopic, removal of ectopic : Fragments of blood clots, fallopian tube epithelium, decidua and immature chorionic villi (ectopic ). See comment. LINA:noble 05/27/2023 COMMENT The specimen predominantly consists of blood clots. Obvious completely transected segment of fallopian tube is not identified. MICROSCOPIC DESCRIPTION Slides are reviewed. GROSS DESCRIPTION Received in fixative is one container labeled with the patient's name and designated ectopic. The specimen consists of multiple irregular fragments of blood clots that in aggregate measure 3.5 x 2.0 x 1.0 cm. No tissue is identified. The entire specimen is submitted in two cassettes. / LINA:noble 05/26/2023 TC:5 CPT: 74532
[2023-05-25] MEDS: Bupivacaine 0.25% 30 ML Vial (14:39)
--- NOTE | 2023-05-25 15:42 | PCM.DC ---
Discharge Instructions Diet Discharge Diet: No restrictions Activity Discharge Activity: Return to Normal Activity, May Not Drive (for 2 weeks or while taking narcotic pain meds.), May Shower and May Take a Tub Bath (in 7 days) May resume sexual activity in: 1 week Weight Bearing Status: Full weight bearing Dressing / Incision Call your doctor if your incision/area has: Continuous Slow Oozing, Sudden Increased Bleeding, Increased Pain/ Swelling, Increased Redness and Foul Smelling Discharge Call your doctor if you observe: Fever of 101 or Higher, Using more than 1 pad per hour, Shortness of breath, Chest pain and Uncontrolled pain Suture Line Care: Avoid Pulling/Pushing and Avoid Pinching/Bending Remove Dressing in: 1 week (if present) Cleanse incision/area with: Soap & Water and Keep Dressing Clean & Dry Follow Up Care When: Call to make an appointment with your doctor for a fu/incision check in 1-2 weeks. Test Results: Test results from this visit will be discussed in further detail at your follow-up appointment, if applicable. Discharge Plan Admission Attending Provider: Silvana Ellis Primary Care Provider: Allen Hines Discharge Orders/Prescriptions Prescriptions: New oxycodone-acetaminophen [Percocet] 5-325 mg tablet 1 tab PO Q6H PRN (Reason: pain) 7 Days Qty: 10 0RF naproxen [naproxen] 500 mg tablet 500 mg PO BID PRN PRN (Reason: Pain) Qty: 30 1RF No Action PNV-DHA 27 mg iron-1 mg -300 mg capsule 1 cap PO DAILY Referrals / Follow Up: Allen Hines MD [Primary Care Provider] - Disposition Disposition (needs filled in before D/C Order can be placed): Home, Self Care
--- OUTSIDE RECORDS SUMMARY | 2023-05-25 16:31 | XMS RPT_ITS | CCD ---
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 Unknown [id number] Summary Purpose Family History No Family History [...] BE BASED ON THE PRIMARY CLINICAL RECORDS. [employer] provides no warranty or guarantee of the accuracy or completeness of information in this document.
== END 2023-05-25 17:04 | disposition home or self-care (01) ==
LOC: SDC 12:14 → AC 12:28
PROVIDERS: PCP Family Medicine; Referring Provider Obstetrics & Gynecology; Visit Provider Obstetrics & Gynecology
PROC: 10T24ZZ Resection of Products of Conception, Ectopic, Percutaneous Endoscopic Approach (ICD-10-PCS; CPT 59150; principal; 2023-05-25 13:45)
DX: O00.90 Unspecified ectopic pregnancy without intrauterine pregnancy (principal)
CPT/HCPCS: 59151; 85027; 86850; 86900; 86901; 88305; J7120; J2405

== ENCOUNTER → 2023-05-25 | Outpatient (CLI) | payer BC, SELFPAY ==
--- NOTE | 2023-05-25 10:28 | US_ITS ---
STUDY: FIRST TRIMESTER OBSTETRICAL ULTRASOUND REASON FOR EXAM: Female, 27 years old threatened LMP: April 09, 2023. TECHNIQUE: Transvaginal TECHNICAL QUALITY: Adequate. PRIOR ULTRASOUND: Comparison is made with prior study dated February 19, 2024. FINDINGS: There is no demonstrated intrauterine gestational sac. There is no demonstrated yolk sac. The placenta is non-visualized. There is no demonstrated embryo ( pole). The estimated gestation age (EGA) by LMP is 6 weeks, 4 days. The estimated date of delivery (MARCO) by LMP is January 14, 2024. The uterus measures 8.9 cm x 5.3 cm x 4.2 cm. There is no demonstrated uterine fibroid. The cervix is closed. Tiny amount of fluid is seen in the endocervical canal. The right ovary measures 4 cm x 2.4 cm x 1.8 cm. There is a 1.4 cm x 1.1 cm x 1 cm follicle There is no visualized right adnexal mass or complex lesion. The left ovary measures 2.2 cm x 1.9 sign by 1.1 cm.. There is a complex structure measuring 1.6 cm x 1.3 cm x 1.2 cm in the left adnexa. Peripheral vascularity is seen. Ectopic should be ruled out. There is no fluid in the cul de sac. US/Transvaginal w/Preg US IMPRESSION: No intrauterine gestation is seen. 1.6 cm x 1.3 cm x 1.2 cm complex nodular density in the left adnexa as described. Ectopic should be ruled out. Electronically Signed: Axel Santos MD at 11:38 EST ,
== END | disposition home or self-care (01) ==
LOC: US 10:26
PROVIDERS: PCP Family Medicine; Referring Provider Obstetrics & Gynecology; Visit Provider Obstetrics & Gynecology
DX: O20.0 Threatened abortion (principal); Z3A.00 Weeks of gestation of pregnancy not specified
CPT/HCPCS: 76817

== ENCOUNTER → 2023-06-08 | Outpatient (CLI) | payer BC, SELFPAY ==
--- OUTSIDE RECORDS SUMMARY | 2023-06-08 10:45 | XMS RPT_ITS | CCD ---
Author Name Unknown Address [address] [place] [address] [address] [place] [id number] Organization [facility] Care Team Providers Care Family Health Nurse Practitioner Name Role Phone NO PRIMARY CARE, Primary Care Unavailable SABINA SANDOVAL Referring Unavailab EMIR Velasquez Attending Unavailable Encounters Encounter Date Encounter Type Care Provider Facility Start: 04-27-2022 End: 04-27-2022 ambulatory NO PRIMARY CARE [facility] Payers Date Payer Category Payer Unknown [id number] Unknown [id number] Summary Purpose Family History No Family History [...] BE BASED ON THE PRIMARY CLINICAL RECORDS. [employer] provides no warranty or guarantee of the accuracy or completeness of information in this document.
[2023-06-08 10:54] LABS: hCG Titer Quant., Serum 1 mIU/mL (1-3)
== END | disposition home or self-care (01) ==
PROVIDERS: PCP Family Medicine; Referring Provider Obstetrics & Gynecology; Visit Provider Obstetrics & Gynecology
DX: O09.90 Supervision of high risk pregnancy, unspecified, unspecified trimester (principal); Z98.890 Other specified postprocedural states; Z3A.00 Weeks of gestation of pregnancy not specified
CPT/HCPCS: 36415; 84702

== ENCOUNTER → 2023-07-06 | Outpatient (CLI) | payer BC, SELFPAY ==
[2023-07-06 17:34] LABS: hCG Titer Quant., Serum 881 mIU/mL (1-3)
== END | disposition home or self-care (01) ==
LOC: LAB 16:31
PROVIDERS: PCP Family Medicine; Referring Provider Obstetrics & Gynecology; Visit Provider Obstetrics & Gynecology
DX: N91.2 Amenorrhea, unspecified (principal)
CPT/HCPCS: 36415; 84702

== ENCOUNTER → 2023-07-08 | Outpatient (CLI) | payer BC, SELFPAY ==
[2023-07-08 17:57] LABS: hCG Titer Quant., Serum 1744 mIU/mL (1-3)
== END | disposition home or self-care (01) ==
LOC: LAB 16:29
PROVIDERS: PCP Family Medicine; Referring Provider Obstetrics & Gynecology; Visit Provider Obstetrics & Gynecology
DX: N91.2 Amenorrhea, unspecified (principal)
CPT/HCPCS: 36415; 84702

== ENCOUNTER → 2023-07-23 | Outpatient (CLI) | payer BC, SELFPAY ==
[2023-07-27 05:13] LABS: Chlamydia By Nucleic Acid AMP Negative (Negative); Gonococcus By Nucleic Acid AMP Negative (Negative)
== END | disposition home or self-care (01) ==
PROVIDERS: PCP Family Medicine; Referring Provider Registered Nurse; Visit Provider Registered Nurse
DX: Z34.90 Encounter for supervision of normal pregnancy, unspecified, unspecified trimester (principal)
CPT/HCPCS: 87086; 87088; 87491; 87591

== ENCOUNTER → 2023-08-24 | Outpatient (CLI) | payer BC, SELFPAY ==
[2023-08-24 08:39] LABS: Absolute Lymphocyte Count 1.49 X10^3/uL (0.83-4.51); Absolute Neutrophil Count 5.4 X10^3/uL (2.0-7.7); Basophil# 0.02 X10^3/uL; Basophil% 0.3 % (0-1); Eosinophil# 0.18 X10^3/uL; Eosinophils% 2.4 % (0-5); Hematocrit 43.5 % (37-47); Hemoglobin 14.4 g/dL (12.0-15.0); Lymphocyte # 1.49 X10^3/ul (0.83-4.51); Lymphocyte % 19.9 % (19-41); Mean Corp Hgb Conc 33.1 g/dL (32-36); Mean Corpuscular Hgb 28.9 pg (27.0-32.0); Mean Corpuscular Volume 87.2 fL (81-99); Mean Platelet Vol. 10.8 fl (6.2-12.0); Monocyte# 0.37 X10^3/uL; Monocyte% 4.9 % (0-10); NRBC Flagged by Analyzer 0 % (0-5); Neutrophil # 5.41 X10^3/uL (2.7-7.7); Neutrophil % 72.4 % (47-70); Platelet Count 261 K/mm3 (150-450); RBC Distribution Width CV 14.2 % (11.6-14.6); RBC Distribution Width SD 45.4 fl (35.1-43.9); Red Blood Count 4.99 M/mm3 (4.2-5.4); White Blood Count 7.5 K/mm3 (4.4-11.0)
[2023-08-24 09:40] LABS: HIV - WCH Non-Reactive (Nonreactive); Hepatitis B Surface Antigen Non-Reactive (Nonreactive); Hepatitis C Antibody Non-Reactive (Nonreactive); Rubella IgG Reactive (Nonreactive); Syphilis Antibodies Non-reactive
== END | disposition home or self-care (01) ==
LOC: LAB 08:00
PROVIDERS: PCP Family Medicine; Referring Provider Registered Nurse; Visit Provider Registered Nurse
DX: O09.90 Supervision of high risk pregnancy, unspecified, unspecified trimester (principal); Z3A.00 Weeks of gestation of pregnancy not specified
CPT/HCPCS: 36415; 85025; 86703; 86762; 86780; 86803; 86850; 86900; 86901; 87340

== ENCOUNTER → 2023-12-10 | Outpatient (CLI) | payer BC, SELFPAY ==
[2023-12-10 07:24] LABS: Absolute Lymphocyte Count 1.36 X10^3/uL (0.83-4.51); Absolute Neutrophil Count 6.6 X10^3/uL (2.0-7.7); Basophil# 0.04 X10^3/uL; Basophil% 0.5 % (0-1); Eosinophils% 1.2 % (0-5); Hemoglobin 11.6 g/dL (12.0-15.0); Lymphocyte # 1.36 X10^3/ul (0.83-4.51); Lymphocyte % 15.7 % (19-41); Mean Corp Hgb Conc 33.1 g/dL (32-36); Mean Corpuscular Volume 90.4 fL (81-99); Mean Platelet Vol. 10.6 fl (6.2-12.0); Monocyte# 0.45 X10^3/uL; Monocyte% 5.2 % (0-10); NRBC Flagged by Analyzer 0 % (0-5); Neutrophil # 6.63 X10^3/uL (2.7-7.7); Neutrophil % 76.2 % (47-70); Platelet Count 262 K/mm3 (150-450); RBC Distribution Width CV 14.1 % (11.6-14.6); RBC Distribution Width SD 45.9 fl (35.1-43.9); Red Blood Count 3.87 M/mm3 (4.2-5.4); White Blood Count 8.7 K/mm3 (4.4-11.0)
[2023-12-10 08:31] LABS: Glucose Challenge Gest 1H 50g 124 mg/dL (70-140)
[2023-12-10 09:21] LABS: HIV - WCH Non-Reactive (Nonreactive); Syphilis Antibodies Non-reactive
== END | disposition home or self-care (01) ==
LOC: LAB 06:55
PROVIDERS: PCP Family Medicine; Referring Provider Obstetrics & Gynecology; Visit Provider Obstetrics & Gynecology
DX: O09.92 Supervision of high risk pregnancy, unspecified, second trimester (principal); Z3A.00 Weeks of gestation of pregnancy not specified
CPT/HCPCS: 36415; 82950; 85025; 86703; 86780

== ENCOUNTER 2023-12-30 17:00 | Outpatient (RCR) | payer BC, SELFPAY ==
--- NOTE | 2023-12-03 11:32 | HP.PTEVAL ---
Patient's Visit Information Visit Information Visit Information: NICOLETTE CAGE is a 28 year old F referred to Physical Therapy by Dr. Silvana Ellis MD with a diagnosis of DORSALGIA,DISEASE AND CONDITION COMPLICATING ,PREGNANCEY. Date of Evaluation: 12/03/23 Physical Therapist: Travon Elizabeth, PT, Cert MDT, OCS Visit Plan Frequency: 1-2x /Week Duration: 4 Weeks Plan: PT INTERVENTIONS RECOMMENDED SI ,POSTURAL EX'S ,DLS ( NEUTRAL) ABD/BACK , ACTIVITY MODIFICATION AND CP/MHP Subjective Subjective: This 28 y/o female presents to physical therapy with back pain. Patient is 27 weeks . Patient developed back pain ~ 3 weeks . Patient had beginning ectopic . Seen OB DR Moreno and massage. Patient tried belt made symptoms . Patient pain affects sleeping. Patient aggravating factors holding weight example son, sitting/standing ,lifting. Alleviating factors rest. Patient prior went well. Coughing/sneezing-. Bowel/bladder- Patient has paresthesia/tingling in hands.. No lifting restriction. Patient goals to decrease pain. Patient to decrease pain throughout . SOCIAL: VOCATION: [employer] Pain Bilateral Back: Pain Intensity (Out of 10): 7 Pain Intensity Range: 10 Objective Objective: POSTURE: slight increase lordosis PALAPTION: tender SI R> L NEURO: denies paresthesia/tingling ,reflexes L3-4 ,4-5,L5-S 1 2/3 GAIT:reciprocal pattern slow roverto MMT: quads/hams 4/5 ,hip flexion 3+/5 ,ankle 5/5 LUMBAR ROM: flexion WFL ,extension min tightness pain,side glides min loss pain FLEXABLITY: hamstrings min tight Special Tests L/S Slump test left side: Negative L/S Slump test right side: Negative L/S Left Straight Leg Raise: Negative L/S Right Straight Leg Raise: Negative Lumbar Standing: Flexion - Mechanical Response: No effect Lumbar Standing: Flexion - Symptoms During Testing: No effect Lumbar Standing: Flexion - Symptoms After Testing: No effect Comments:: right side pulling Lumbar Standing: Extension - Mechanical Response: No effect Lumbar Standing: Extension - Symptoms During Testing: Increases Lumbar Standing: Extension - Symptoms After Testing: No worse Lumbar Standing: Right Side Glides - Mechanical Response: No effect Lumbar Standing: Right Side [place] - Symptoms During Testing: Abolishes Lumbar Standing: Right Side [place] - Symptoms After Testing: No worse Lumbar Standing: Left Side [place] - Mechanical Response: No effect Lumbar Standing: Left Side [place] - Symptoms During Testing: Increases Lumbar Standing: Left Side [place] - Symptoms After Testing: No worse Balance/Special Test Scores Oswestry Low Back Score: 26 Goals Goal 1:: Patient to be I with HEP for back Goal Time Frame: 4-6 Weeks Goal 2:: Patient to demonstrate 50% improvement with decrease pain and improved function. Goal Time Frame: 4-6 Weeks Goal 3:: Patient to improve lumbar ROM for function of recovery to lift baby Goal Time Frame: 4-6 Weeks Goal 4:: Patient to improve back oswestry score by 5 points to improve function and QOL Goal Time Frame: 4-6 Weeks Goal 5:: Patient to be able to perform ADLS and housework tasks with min limitations Goal Time Frame: 4-6 Weeks Rehabilitation Potential Physical Therapy Diagnosis: This patient patient is 27 weeks with back pain seems to be SI ,pain worse with walking/standing ,sitting affects job demands thus benefit from skilled PT Rehabilitation Potential: Good Anticipated Interventions Patient/Client Instruction: Educate patient on: Condition and Plan of Care For the Purpose of:: To decrease pain, To increase ROM, To improve muscle performance and motor function, To improve ability to perform ADL's, To increase tolerance to activity/condition/position, To improve ability of physical actions for home/community/work/leisure, To improve gait and locomotor functions, To decrease soft tissue restriction, To increase flexibility/ROM, To prevent re-injury and To improve tolerance to ADL's Therapeutic Exercise to Include: Strength training, Endurance training, Balance training, Postural training, Flexibilty training, Active ROM and Dynamic Lumbar Stabilization For the Purpose of:: To decrease pain, To increase ROM, To improve muscle performance and motor function, To improve ability to perform ADL's, To increase tolerance to activity/condition/position, To improve ability of physical actions for home/community/work/leisure, To improve gait and locomotor functions, To decrease soft tissue restriction, To increase flexibility/ROM, To reduce risk of recurrence, To improve health and function, To prevent re-injury and To improve tolerance to ADL's Text: Thank you for the opportunity to evaluate your patient. For Medicare and Medicare HMO plans, please review the plan of care and approve it. It will need to be FAXED BACK to us at [phone] for Medicare purposes. For Medicare only, by signing this I certify the plan of care. Please let me know if there are questions or concerns regarding this plan of care. Physician Signature: Date:
--- NOTE | 2023-12-30 17:51 | HP.PTDCSUM ---
Discharge Summary D/C summary: It has been my pleasure to treat NICOLETTE CAGE referred by Dr. iSlvana Ellis MD, with the diagnosis of DORSALGIA,DISEASE AND CONDITION COMPLICATING ,PREGNANCEY for a total of 7 visit(s). Discharge Date: Please see the following information for a summary of their discharge status. Subjective Subjective: Patient willing to do ex's on. Pain Bilateral Back: Pain Intensity (Out of 10): 4 Overall Improvement % Improvement: 40 Objective Objective/Function: OSTURE: slight increase lordosis PALAPTION: tender SI R> L NEURO: denies paresthesia/tingling ,reflexes L3-4 ,4-5,L5-S 1 2/3 GAIT:reciprocal pattern MMT: quads/hams 4/5 ,hip flexion 4/5 ,ankle 5/5 LUMBAR ROM: flexion WFL ,extension min tightness pain,side glides min loss pain FLEXABLITY: hamstrings min tight Goals Goal 1:: Patient to be I with HEP for back Goal Progress: Goal Met Goal 2:: Patient to demonstrate 50% improvement with decrease pain and improved function. Goal Progress: Goal Met Goal 3:: Patient to improve lumbar ROM for function of recovery to lift baby Goal Progress: Goal Met Goal 4:: Patient to improve back oswestry score by 5 points to improve function and QOL Goal Progress: Goal Met Goal 5:: Patient to be able to perform ADLS and housework tasks with min limitations Goal Progress: Goal Met Plan Plan: D/C D/C Information d/c sentence: If there are questions or concerns regarding this patient's physical therapy, please feel free to call me at [phone]. Thank you for the referral of this patient. Sincerely, Travon Elizabeth, PT, Cert MDT, OCS Balance/Gait/Functional tests Balance/Special Test Scores Oswestry Low Back Score: 26 Improvement % Improvement: 40
== END 2023-12-30 19:00 | disposition home or self-care (01) ==
LOC: PT 17:00
PROVIDERS: PCP Family Medicine; Referring Provider Obstetrics & Gynecology; Visit Provider Obstetrics & Gynecology
DX: O99.891 Other specified diseases and conditions complicating pregnancy (principal); M54.9 Dorsalgia, unspecified; Z3A.00 Weeks of gestation of pregnancy not specified
CPT/HCPCS: 97110; 97161; 97530

== ENCOUNTER → 2024-02-16 | Outpatient (CLI) | payer BC, SELFPAY | END | disposition home or self-care (01) | LOC: LABSPEC 16:39 | PROVIDERS: PCP Family Medicine; Referring Provider Obstetrics & Gynecology; Visit Provider Obstetrics & Gynecology | DX: O09.93 Supervision of high risk pregnancy, unspecified, third trimester (principal); Z3A.00 Weeks of gestation of pregnancy not specified | CPT/HCPCS: 87081 ==

== ENCOUNTER 2024-03-10 15:33 | Inpatient (IN) | payer BC, SELFPAY ==
[2024-03-10] VITALS (33 sets, daily range): BP systolic 84–111; BP diastolic 46–72; PULSE 53–101; RESP 16; TEMP 36.4; O2SAT 91–100; BMI 34.0
[2024-03-10 16:03] LABS: Absolute Lymphocyte Count 1.66 X10^3/uL (0.83-4.51); Absolute Neutrophil Count 6.9 X10^3/uL (2.0-7.7); Basophil# 0.02 X10^3/uL; Basophil% 0.2 % (0-1); Eosinophil# 0.11 X10^3/uL; Eosinophils% 1.2 % (0-5); Hematocrit 35.7 % (37-47); Hemoglobin 11.6 g/dL (12.0-15.0); Lymphocyte # 1.66 X10^3/ul (0.83-4.51); Lymphocyte % 17.9 % (19-41); Mean Corp Hgb Conc 32.5 g/dL (32-36); Mean Corpuscular Hgb 26.9 pg (27.0-32.0); Mean Corpuscular Volume 82.8 fL (81-99); Mean Platelet Vol. 11.9 fl (6.2-12.0); Monocyte# 0.52 X10^3/uL; Monocyte% 5.6 % (0-10); NRBC Flagged by Analyzer 0 % (0-5); Neutrophil # 6.89 X10^3/uL (2.7-7.7); Neutrophil % 74.3 % (47-70); Platelet Count 224 K/mm3 (150-450); RBC Distribution Width CV 14.4 % (11.6-14.6); RBC Distribution Width SD 43.1 fl (35.1-43.9); Red Blood Count 4.31 M/mm3 (4.2-5.4); White Blood Count 9.3 K/mm3 (4.4-11.0)
[2024-03-10] MEDS: Lactated Ringers 1,000 ML 999 ML IV ×2 (16:45→20:24)
[2024-03-10 17:25] LABS: Syphilis Antibodies Non-reactive
[2024-03-10] MEDS: Lactated Ringers 1,000 ML 200 ML IV (19:45)
[2024-03-10] MEDS: Oxytocin 15 Units/NS 250ml 15 UNITS/250 ML IV.SOLN 2 UNITS IV (20:29)
[2024-03-10] MEDS: fentaNYL-bupivacaine (epidural) 100 ML BAG EPIDURAL (21:25)
[2024-03-10] MEDS: LACTATED RINGERS 500 ML 999 ML IV (23:00)
[2024-03-10] MEDS: ePHEDrine Sulfate 50 MG/ML Ampul 10 MG IM (23:02)
[2024-03-10] MEDS: ePHEDrine Sulfate 50 MG/ML Ampul 10 MG IV (23:03)
[2024-03-11] VITALS (49 sets, daily range): BP systolic 90–120; BP diastolic 51–69; PULSE 62–100; RESP 16; TEMP 36.4–37.1; O2SAT 88–100
[2024-03-11] MEDS: Lactated Ringers 1,000 ML 200 ML IV ×2 (00:25→07:48)
[2024-03-11] MEDS: Ondansetron 4 MG/2 ML Vial IV (01:17)
[2024-03-11] MEDS: 0.9% Saline Lock 10 ML Syringe IV (03:32)
[2024-03-11] MEDS: fentaNYL-bupivacaine (epidural) 100 ML BAG EPIDURAL (03:55)
--- NOTE | 2024-03-11 04:14 | HP.PCM.OB_ITS ---
HPI - General General Date of Admission: 03/10/24 HPI Narrative NICOLETTE CAGE, is a 28 F who presents with SROM clear fluid from the office, elevated FHT. 1-2 cm dilated. irregular ctx. Maternal Data Information MARCO Calculator Estimated Delivery Date Method Current WG Current Estimate 03/10/24 Ultrasound #1 40w 1d Other Estimates 03/03/24 LMP (Certain) 41w 1d PFS PFS Medical History Ectopic Concussion Home Medications ?Medication ?Instructions ?Recorded ?Last Taken ?Type multivitamin no.47-iron fum 27 1 cap PO DAILY 02/19/22 05/24/23 History mg-folate no.1 1 mg-dha 300 mg capsule (PNV-DHA) buspirone 10 mg tablet 10 mg PO BID #60 tabs 08/06/23 Unknown Rx Allergy/AdvReac Type Severity Reaction Status Date / Time No Known Allergies Allergy Verified 03/10/24 15:49 Family History Sister Cervical cancer, Onset Age: 19 Grandfather Brain cancer, Onset Age: 70 maternal Mother Arthritis Surgical History H/O salpingostomy History of bunionectomy Social History adopted: No household members: spouse and children housing: house number of children: 1 current occupational status: employed 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 current occupational exposures/hazards: No pets and animals: Yes (Avoid litterbox) pets and animals: cat(s) and dog(s) history of recent travel: No sexually active: Yes Smoking Status: Never smoker alcohol intake: former details: ocassional not while substance use type: does not use well-balanced diet: daily or most days caffeine: Yes Type: coffee Number of servings: 1 eating out: 1-3 times/week during the past year weight has: remained stable what type of physical activity do you participate in: none lisbet/bahai: None seatbelt use: always do you feel safe at home: Yes additional social history: Doug jeronimo History 3 Elective abortions Hx Para 1 Spontaneous abortions Hx # Term Pregnancies Ectopic pregnancies 1 Hx # Pregnancies Multiple births # of living children 1 Past Pregnancies Del. Date Name GA/Weeks Outcome Route Bth Weight Gen Labor Lgth Anesthesia Del Locatn Provider FOB 09/22/22 [place] 40 live - full term 7#11oz Male epidu ral [facility] Christina Powell CNM 05/24/23 6 ectopic [facility] MYLENE Delivery Date: 09/22/22 Last Updated by: So Brown see problem list for complications Visit Details Expected Delivery Route/Plan Labor Preferences- CB/BF classes: no labor support person: Doug labor intervention preferences: [] pain management options preferred: epidural if requested cut cord/dad catch: no : yes PP control planned: discussed discussed possible routes of delivery and associated risks: [] special requests: [] Plans Covid status: [] Flu vaccine: [] Tdap vaccine: given Rhogam: NA LARC form signed: yes Problem list reviewed and updated with the most current plan of care details and appropriate orders placed. Relevant counseling for the gestational age provided. Continue routine care and follow up unless otherwise noted in visit notes/problem list details OB Flowsheet Initial Weight: 187 lb Date -?-?-?-?-?-?-?-?-?-?-?-?- EGA Weight BP Urine Prot -?-?-?-?-?-?-?-?-?-?-?-?- Glucose FHR FuHt Pres Dilation -?-?-?-?-?-?-?-?-?-?-?-?- Effaced St Visit Note 07/23/23 -?-?-?-?-?-?-?-?-?-?-?-?- 7w 0d 187 lb 8 oz (+8 oz) 116/87 -?-?-?-?-?-?-?-?-?-?-?-?- 125 -?-?-?-?-?-?-?-?-?-?-?-?- LC- CRL not cw L MP. MARCO changed. LC- CRL not cw LMP. MARCO nino ged 03/10.considering nipt, desires to rto in 2 weeks for wellbeing for recent ectopic. 08/06/23 -?-?-?-?-?-?-?-?-?-?-?-?- 9w 0d -?-?-?-?-?-?-?-?-?-?-?-?- 160 -?-?-?-?-?-?-?--?-?-?-?-?- viable IUP seen FHT present viable IUP seen FHT present no subchorionic hematoma seen 08/20/23 -?-?-?-?-?-?-?-?-?-?-?-?- 11w 0d 190 lb (+3 lb) 108/71 Negative -?-?-?-?-?-?-?-?-?-?-?-?- Negative 173 -?-?-?-?-?-?-?-?-?-?-?-?- JV- no cramping or bleeding. wants NIPT now. 09/06/23 -?-?-?-?-?-?-?-?-?-?-?-?- 13w 3d 185 lb 2 oz (-1 lb 14 oz) 108/72 Negative -?-?-?-?-?-?-?-?-?-?-?-?- Negative 157 -?-?-?-?-?-?-?-?-?-?-?-?- MH-No VB. Doing well and denies concerns. Brief US confirms active, live IUP 09/30/23 -?-?-?-?-?-?-?-?-?-?-?-?- 16w 6d 187 lb (+0 oz) 102/67 Negative -?-?-?-?-?-?-?-?-?-?-?-?- Negative 150 16 -?-?-?-?-?-?-?-?-?-?-?-?- SM- no vb lof cr amping doing well overall 10/25/23 -?-?-?-?-?-?-?-?-?-?-?-?- 20w 3d 189 lb 4 oz (+2 lb 4 oz) 104/68 Negative -?-?-?-?-?-?-?-?-?-?-?-?- Negative 153 -?-?-?-?-?-?-?-?-?-?-?-?- MH-No Vb, LOF. G ood FM. Denies concerns 11/26/23 -?-?-?-?-?-?-?-?-?-?-?-?- 25w 0d 194 lb (+7 lb) 97/61 Negative -?-?-?-?-?-?-?-?-?-?-?-?- Negative 145 25 -?-?-?-?-?-?-?-?-?-?-?-?- SM- no vb lof go od fm no regular ctx still having back pain which is also causing trouble sleep 12/10/23 -?-?-?-?-?-?-?-?-?-?-?-?- 27w 0d 194 lb 8 oz (+7 lb 8 oz) 108/67 Negative -?-?-?-?-?-?-?-?-?-?-?-?- Negative 140 28 -?-?-?-?-?-?-?-?-?-?-?-?- kw- no vb/crampi ng. good fm. PT starts next week. passed glucose 12/21/23 -?-?-?-?-?-?-?-?-?-?-?-?- 28w 4d 192 lb 4 oz (+5 lb 4 oz) 108/72 Negative -?-?-?-?-?-?-?-?-?-?-?-?- Negative 145 29 -?-?-?-?-?-?-?-?-?-?-?-?- JV- no lof, vagi nal bleeding, or dec fm. 01/03/24 -?-?-?-?-?-?-?-?-?-?-?-?- 30w 3d 193 lb 2 oz (+6 lb 2 oz) 104/62 Negative -?-?-?-?-?-?-?-?--?-?-?-?- Negative 158 31 -?-?-?-?-?-?-?-?-?-?-?-?- MH-No VB, LOF. G ood FM. Larc. Anxiety, stable but more tearful do to lost due this month. 01/17/24 -?-?-?-?-?-?-?-?-?-?-?-?- 32w 3d 195 lb 4 oz (+8 lb 4 oz) 108/71 Negative -?-?-?-?-?-?-?-?-?-?-?-?- Negative 160 32 -?-?-?-?-?-?-?-?-?-?-?-?- JV- no lof, vagi nal bleeding, or dec fm. having some majo - ibrahim not more than 10 in an hour. JV- no lof, vaginal bleeding , or dec fm. having some majo - ibrahim not more than 10 in an hour. flu shot today. 02/03/24 -?-?-?-?-?-?-?-?-?-?-?-?- 34w 6d 194 lb (+7 lb) 112/70 Negative -?-?-?-?-?-?-?-?-?-?-?-?- Negative 145 34 Breech -?-?-?-?-?-?-?-?-?-?-?-?- SM- no vb lof go od fm no reuglar ctx 02/10/24 -?-?-?-?-?-?-?-?-?-?-?-?- 35w 6d 198 lb (+11 lb) 105/72 Negative -?-?-?-?-?-?-?-?-?-?-?-?- Negative 140 36 Cephalic -?-?-?-?-?-?-?-?-?-?-?-?- JV- vtx OP on ul trasound. no lof, vaginal bleeding, or dec fm. 02/16/24 -?-?-?-?-?-?-?-?-?-?-?-?- 36w 5d 195 lb 6 oz (+8 lb 6 oz) 101/69 Negative -?-?-?-?-?-?-?-?-?-?-?-?- Negative 144 36 Cephalic 0 -?-?-?-?-?-?-?-?-?-?-?-?- JV- no lof, vagi nal bleeding, or dec fm. gbs collected. 02/25/24 -?-?-?-?-?-?-?-?-?-?-?-?- 38w 0d 195 lb (+8 lb) 102/71 -?-?-?-?-?-?-?-?-?-?-?-?- 145 38 Cephalic -?-?-?-?-?-?-?-?-?-?-?-?- KW- no vb/lof/ct x. good fm. labor precautions 03/03/24 -?-?-?-?-?-?-?-?-?-?-?-?- 39w 0d 196 lb (+9 lb) 113/78 Negative -?-?-?-?-?-?-?-?-?-?-?-?- 100 g/dL 150 39 Cephalic -?-?-?-?-?-?-?-?-?-?-?-?- KW- no vb/lof/ct x. good fm 03/10/24 -?-?-?-?-?-?-?-?-?-?-?-?- 40w 0d 199 lb 2 oz (+12 lb 2 oz) 110/77 Negative -?-?-?-?-?-?-?-?-?-?-?-?- Negative 180 38 Cephalic -?-?-?-?-?-?-?-?-?-?-?-?- SM- had a lot of contractions yesterday just SROM clear fluid NST FHR Rate Baby A Baseline: 170 Variability:: Moderate Accelerations:: 15 x 15 Decelerations:: Variable (intermittent) NST Reactive:: Yes FHR Category:: Category II Uterine Activity:: no regular ROS Constitutional Constitutional: Reports systems reviewed and no addt'l complaints, except as documented Eyes Eyes: Denies change in vision ENT HEENT: Reports systems reviewed and no addt'l complaints, except as documented; Denies headache(s) Cardiovascular Cardiovascular: Reports systems reviewed and no addt'l complaints, except as documented; Denies chest pain or dyspnea Respiratory/Chest Respiratory/Chest: Reports systems reviewed and no addt'l complaints, except as documented Gastrointestinal Gastrointestinal: Reports systems reviewed and no addt'l complaints, except as documented; Denies abdominal pain Genitourinary Genitourinary: Reports systems reviewed and no addt'l complaints, except as documented, contractions Details: present (irregular) and movement Details: present; Denies dysuria or genital lesions Musculoskeletal Musculoskeletal: Reports systems reviewed and no addt'l complaints, except as documented Neurologic Neurologic: Reports systems reviewed and no addt'l complaints, except as documented Endocrine Endocrinology: Reports systems reviewed and no addt'l complaints, except as documented Vital Signs Vital Signs Vital Signs: 03/10/24 15:30 03/10/24 15:30 03/10/24 19:44 Temperature Temperature Source Temporal Pulse Rate 89 Respiratory Rate Blood Pressure 107/70 BP Systolic 107 BP Diastolic 70 Pulse Ox 03/10/24 19:44 03/10/24 19:44 03/10/24 19:45 Temperature 97.5 F L Temperature Source Pulse Rate Respiratory Rate 16 Blood Pressure 92/56 L BP Systolic 92 BP Diastolic 56 Pulse Ox 03/10/24 19:45 03/10/24 21:01 03/10/24 21:01 Temperature Temperature Source Pulse Rate 101 H 64 Respiratory Rate Blood Pressure 106/66 BP Systolic 106 BP Diastolic 66 Pulse Ox 03/10/24 21:03 03/10/24 21:03 03/10/24 21:08 Temperature Temperature Source Pulse Rate 65 74 Respiratory Rate Blood Pressure BP Systolic BP Diastolic Pulse Ox 99 03/10/24 21:08 03/10/24 21:12 03/10/24 21:12 Temperature Temperature Source Pulse Rate 69 Respiratory Rate Blood Pressure BP Systolic BP Diastolic Pulse Ox 100 91 03/10/24 21:13 03/10/24 21:13 03/10/24 21:14 Temperature Temperature Source Pulse Rate 81 Respiratory Rate Blood Pressure 107/64 BP Systolic 107 BP Diastolic 64 Pulse Ox 98 03/10/24 21:14 03/10/24 21:17 03/10/24 21:18 Temperature Temperature Source Pulse Rate 68 79 Respiratory Rate Blood Pressure 111/72 BP Systolic 111 BP Diastolic 72 Pulse Ox 03/10/24 21:18 03/10/24 21:23 03/10/24 21:23 Temperature Temperature Source Pulse Rate 67 Respiratory Rate Blood Pressure 100/60 BP Systolic 100 BP Diastolic 60 Pulse Ox 100 03/10/24 21:23 03/10/24 21:29 03/10/24 21:29 Temperature Temperature Source Pulse Rate 87 Respiratory Rate Blood Pressure BP Systolic BP Diastolic Pulse Ox 100 97 03/10/24 21:30 03/10/24 21:30 03/10/24 21:30 Temperature Temperature Source Pulse Rate 82 Respiratory Rate 16 Blood Pressure 100/61 BP Systolic 100 BP Diastolic 61 Pulse Ox 03/10/24 21:34 03/10/24 21:34 03/10/24 21:34 Temperature Temperature Source Pulse Rate 70 75 Respiratory Rate Blood Pressure 106/60 BP Systolic 106 BP Diastolic 60 Pulse Ox 03/10/24 21:34 03/10/24 21:34 03/10/24 21:38 Temperature Temperature Source Pulse Rate Respiratory Rate 16 Blood Pressure 102/59 L BP Systolic 102 BP Diastolic 59 Pulse Ox 99 03/10/24 21:38 03/10/24 21:38 03/10/24 21:39 Temperature Temperature Source Pulse Rate 75 71 Respiratory Rate 16 Blood Pressure BP Systolic BP Diastolic Pulse Ox 03/10/24 21:39 03/10/24 21:39 03/10/24 21:39 Temperature Temperature Source Pulse Rate 77 Respiratory Rate Blood Pressure BP Systolic BP Diastolic Pulse Ox 91 98 03/10/24 21:43 03/10/24 21:43 03/10/24 21:43 Temperature Temperature Source Pulse Rate 65 Respiratory Rate 16 Blood Pressure 101/60 BP Systolic 101 BP Diastolic 60 Pulse Ox 03/10/24 21:44 03/10/24 21:44 03/10/24 21:47 Temperature Temperature Source Pulse Rate 64 Respiratory Rate Blood Pressure 102/61 BP Systolic 102 BP Diastolic 61 Pulse Ox 100 03/10/24 21:47 03/10/24 21:47 03/10/24 21:49 Temperature Temperature Source Pulse Rate 68 66 Respiratory Rate 16 Blood Pressure BP Systolic BP Diastolic Pulse Ox 03/10/24 21:49 03/10/24 21:52 03/10/24 21:52 Temperature Temperature Source Pulse Rate 71 Respiratory Rate Blood Pressure 104/64 BP Systolic 104 BP Diastolic 64 Pulse Ox 99 03/10/24 21:52 03/10/24 21:54 03/10/24 21:54 Temperature Temperature Source Pulse Rate 70 Respiratory Rate 16 Blood Pressure BP Systolic BP Diastolic Pulse Ox 99 03/10/24 22:35 03/10/24 22:35 03/10/24 22:35 Temperature Temperature Source Temporal Pulse Rate 67 Respiratory Rate Blood Pressure 88/49 L BP Systolic 88 BP Diastolic 49 Pulse Ox 03/10/24 22:35 03/10/24 22:35 03/10/24 22:35 Temperature Temperature Source Pulse Rate 64 Respiratory Rate 16 Blood Pressure BP Systolic BP Diastolic Pulse Ox 98 03/10/24 22:35 03/10/24 22:41 03/10/24 22:41 Temperature 97.5 F L Temperature Source Pulse Rate 65 Respiratory Rate Blood Pressure 84/46 L BP Systolic 84 BP Diastolic 46 Pulse Ox 03/10/24 22:52 03/10/24 22:52 03/10/24 22:57 Temperature Temperature Source Pulse Rate 53 L Respiratory Rate Blood Pressure 85/49 L 97/61 BP Systolic 85 97 BP Diastolic 49 61 Pulse Ox 03/10/24 22:57 03/10/24 23:02 03/10/24 23:02 Temperature Temperature Source Pulse Rate 53 L 61 Respiratory Rate Blood Pressure 94/52 L BP Systolic 94 BP Diastolic 52 Pulse Ox 03/10/24 23:09 03/10/24 23:09 03/10/24 23:13 Temperature Temperature Source Pulse Rate 55 L Respiratory Rate Blood Pressure 98/59 L 100/63 BP Systolic 98 100 BP Diastolic 59 63 Pulse Ox 03/10/24 23:13 03/10/24 23:19 03/10/24 23:19 Temperature Temperature Source Pulse Rate 62 59 L Respiratory Rate Blood Pressure 104/64 BP Systolic 104 BP Diastolic 64 Pulse Ox 03/10/24 23:25 03/10/24 23:25 03/10/24 23:41 Temperature Temperature Source Pulse Rate 78 Respiratory Rate Blood Pressure 104/64 102/68 BP Systolic 104 102 BP Diastolic 64 68 Pulse Ox 03/10/24 23:41 03/11/24 00:35 03/11/24 00:35 Temperature Temperature Source Temporal Pulse Rate 86 Respiratory Rate 16 Blood Pressure BP Systolic BP Diastolic Pulse Ox 03/11/24 00:35 03/11/24 00:36 03/11/24 00:36 Temperature 97.5 F L Temperature Source Pulse Rate 85 Respiratory Rate Blood Pressure 102/66 BP Systolic 102 BP Diastolic 66 Pulse Ox 03/11/24 03:46 03/11/24 03:46 03/11/24 03:46 Temperature 97.7 F L Temperature Source Temporal Pulse Rate Respiratory Rate 16 Blood Pressure BP Systolic BP Diastolic Pulse Ox 03/11/24 03:47 03/11/24 03:47 Temperature Temperature Source Pulse Rate 62 Respiratory Rate Blood Pressure 101/57 L BP Systolic 101 BP Diastolic 57 Pulse Ox Weight Weight: 198 lb Body Mass Index (BMI) 34.0 Physical Exam Const alert, oriented x3, no apparent distress and healthy appearing HEENT normocephalic and moist oral mucous membranes Head and Scalp: atraumatic Neck full ROM, no lymphadenopathy, supple and thyroid normal General: trachea midline Lymph Lymphatic: no lymphadenopathy noted Chest inspection of chest normal Resp normal respiratory effort Cardio regular rate GI soft to palpation and non-tender Inspection: gravid external exam normal Manual OB Exam: estimated gestational size appropriate, presentation cephalic, dilated, effaced and station Extremity normal to inspection General Extremity: Negative for edema Skin no rashes or lesions noted Neuro no focal motor deficits and deep tendon reflexes 2+ bilaterally Motor Exam: strength 5/5 throughout and clonus absent Psych mental status grossly normal Labs Labs Labs: Blood Type A POSITIVE Antibody Screen NEGATIVE Hct 35.7 % (37-47) L Hgb 11.6 g/dL (12.0-15.0) L Pap Smear Negative Obstetrics Ultrasound Syphilis Total Ab Non-reactive Rubella IgG Antibody Reactive (Nonreactive) Hep Bs Antigen Non-Reactive (Nonreactive) Hepatitis C Antibody Non-Reactive (Nonreactive) Chlamydia DNA (CED) Negative (Negative) N.gonorrhoeae DNA (CED) Negative (Negative) HIV 1&2 Antibody Non-Reactive (Nonreactive) Glucose 1 Hr 50 gm 124 mg/dL (70-140) Rhogam given: No Assessment & Plan (1) SROM (spontaneous rupture of membranes): (2) tachycardia: (3) Back pain affecting : COMMENT: failed tylenol, massage, yoga. PT referral (4) Supervision of high-risk : QUALIFIERS: Trimester: third trimester Qualified Code(s): O09.93 - Supervision of high risk , unspecified, third trimester COMMENT: [id number], MARCO 11/22/24,girl [facility] [place], Doug (5) : QUALIFIERS: Weeks of gestation: 40 weeks Qualified Code(s): Z3A.40 - 40 weeks gestation of COMMENT: Neg GBS. NIPT low risk, previous neg. carrier testing. AF P:declines (6) Anxiety: COMMENT: Managed with buspirone. Not currently in counseling. Stable. PLAN: Plan admit SROM exp management pitocin if no change, IVFs for tracing which improved with interventions.
--- NOTE | 2024-03-11 08:52 | EX.PCM.OBVAG ---
Assessment & Plan (1) SROM (spontaneous rupture of membranes): (2) tachycardia: (3) Back pain affecting : COMMENT: failed tylenol, massage, yoga. PT referral (4) Supervision of high-risk : QUALIFIERS: Trimester: third trimester Qualified Code(s): O09.93 - Supervision of high risk , unspecified, third trimester COMMENT: [id number], MARCO 03/10/24,girl [facility] [place], Doug (5) : QUALIFIERS: Weeks of gestation: 40 weeks Qualified Code(s): Z3A.40 - 40 weeks gestation of COMMENT: Neg GBS. NIPT low risk, previous neg. carrier testing. AFP:declines (6) Anxiety: COMMENT: Managed with buspirone. Not currently in counseling. Stable. (7) Vaginal delivery: COMMENT: SM SROM 40 girl Julia Maternal Data Information MARCO Calculator Estimated Delivery Date Method Current WG Current Estimate 03/10/24 Ultrasound #1 40w 2d Other Estimates 03/03/24 LMP (Certain) 41w 2d Vaginal Delivery Maternal Presentation Maternal Presentation: see assessment and plan Vaginal Delivery Information Procedure Performed: Spontaneous Vaginal Delivery Surgeon/Practitioner: Silvana Ellis Pre-Procedure Diagnosis: see assessment and plan Post-Procedure Diagnosis: same Type of anesthesia: Epidural Estimated Blood Loss: 200 Fluids Replaced: crystalloid Findings Description of procedure: Patient began pushing and delivered the head in the MELCHOR presentation. The head was delivered atraumatically . The anterior and posterior shoulders delivered without complication followed by the rest of the infant and the infant was placed on the maternal abdomen. Delayed cord clamping was employed for approximately 60 seconds. Cord was clamped and cut and gentle traction was applied to the cord and the placenta delivered spontaneously immediately following it was noted to be intact with three-vessel cord, however some of the membranes were noted to be filmy and loose so a manual exploration of the uterine lining was performed to ensure no retained membranes were present, no retained products found. ancef will be given x 1 due this. The perineum and vagina were inspected and was noted to have a first -degree laceration that was repaired in the usual fashion with 3-0 vicryl rapide . EBL was 200. Patient and infant tolerated delivery well. Presentation: Vertex Placental Delivery Description: Spontaneous Specimen collected: Yes Description of specimen(s) removed: placenta Bookkeeping Clerk cotton feeder: No Post Vaginal Deli Medications given after delivery: Other (pitocin) Complication Complications: No Multi Select Codes Urinary/Genital Urinary/Genital CPT Codes: 43983 Vaginal Delivery [facility]
[2024-03-11] MEDS: Oxytocin 15 Units/NS 250ml 15 UNITS/250 ML IV.SOLN 83 UNITS IV (09:13)
[2024-03-11] MEDS: Cefazolin 2 GM in Syringe IV (09:57)
[2024-03-11] MEDS: Acetaminophen 500 MG Tablet 1000 MG PO ×2 (15:44→22:14)
[2024-03-11] MEDS: Naproxen 500 MG Tablet PO (17:42)
[2024-03-11] MEDS: busPIRone 5 MG Tablet 10 MG PO (22:14)
[2024-03-12 01:26] VITALS: BP 110/69; PULSE 66; RESP 16; TEMP 36.6
[2024-03-12] MEDS: Naproxen 500 MG Tablet PO (01:46)
[2024-03-12] MEDS: Benzocaine/Lanolin/Aloe Vera 85 GM Spray 1 SPRAY TOPICAL (01:46)
--- NOTE | 2024-03-12 04:59 | DCINST_ITS ---
Discharge Instructions Diet Discharge Diet: No restrictions DC O2, CPAP, BIPAP needs Additional Home O2 Discharge instructions: No Dressing / Incision Discharge Activity: Return to Normal Activity, May Not Drive (while taking na rcotic pain medications.) and May Shower May resume sexual activity in: 4-6 weeks Dressing / Incision Call your doctor if your incision/area has: Continuous Slow Oozing, Sudden Increased Bleeding, Increased Pain/ Swelling, Increased Redness and Foul Smelling Discharge Follow Up Care Please Follow Up With: Silvana Ellis MD When: Call [phone] to make an appointment with your doctor in 6 weeks. If you had elevated blood pressure or 4th degree laceration, you will need to be seen in 2 weeks. Test Results: Test results from this visit will be discussed in further detail at your follow- up appointment, if applicable. Discharge Plan Admission Admit Date/Time: 03/10/24 15:33 Attending Provider: Silvana Ellis Primary Care Provider: Abraham Hines Discharge Orders/Prescriptions Prescriptions: No Action PNV-DHA 27 mg iron-1 mg -300 mg capsule 1 cap PO DAILY buspirone 10 mg tablet 10 mg PO BID Qty: 60 5RF Referrals / Follow Up: Abraham Hines MD [Primary Care Provider] - Disposition Disposition (needs filled in before D/C Order can be placed): Home, Self Care
--- NOTE | 2024-03-12 04:59 | PCM.PN.OB ---
Subjective Subjective Patient doing well without complaints. Tolerating PO. Ambulating and voiding without difficulty. feeding well. Denies chest pain, shortness of breath, calf pain/swelling, fevers, chills, lightheadedness. Objective Data Objective Data Vital Signs: Vital Signs Temp Pulse Resp BP Pulse Ox O2 Del Method 97.9 F 66 16 110/69 99 Room Air 03/12/24 01:26 03/12/24 01:26 03/12/24 01:26 03/12/24 01:26 03/11/24 22:17 03/12/24 01:26 Oxygen Delivery Method Room Air Weight: 198 lb Body Mass Index (BMI) 34.0 Intake & Output: Intake and Output for Last 24 Hours 03/10/24 03/11/24 03/12/24 23:59 23:59 23:59 Intake Total 3090.58 / 3090.58 2929.42 / 2929.42 Output Total 600 / 600 Balance 3090.58 / 3090.58 2329.42 / 2329.42 Lab / Micro Data 03/10/24 15:50 ROS Constitutional Constitutional: Reports systems reviewed and no addt'l complaints, except as documented Cardiovascular Cardiovascular: Reports systems reviewed and no addt'l complaints, except as documented Respiratory/Chest Respiratory/Chest: Reports systems reviewed and no addt'l complaints, except as documented Gastrointestinal Gastrointestinal: Reports systems reviewed and no addt'l complaints, except as documented Physical Exam Const alert, oriented x3 and no apparent distress HEENT Head and Scalp: atraumatic Resp normal respiratory effort GI soft to palpation and non-tender Bimanual Exam - Vag & Uterus: uterus non-tender Uterus Palpation: uterus fundus firm (below Umbilicus) Assessment & Plan (1) Vaginal delivery: COMMENT: SROM 40 girl Nova PLAN: Plan s/p PPD # 1 1. routine post delivery care 2. breast feeding- support given 3. rh positive 4. rubella immune
[2024-03-12 06:33] VITALS: BP 103/54; PULSE 66; RESP 16; TEMP 36.6
[2024-03-12 10:00] VITALS: BP 118/53; PULSE 70; RESP 15; TEMP 36.4; O2SAT 97
[2024-03-12 10:05] VITALS: BP 118/53; PULSE 69; O2SAT 97
[2024-03-12] MEDS: busPIRone 5 MG Tablet 10 MG PO (10:42)
--- NOTE | 2024-03-12 10:45 | CASEMGMT ---
Social Work Assessment Labor and Delivery Unit Patient Address: [address] [place] [address] [place] [address] Phone number: Date of Referral: 03/11/2024 Time of Referral: 01:46 Referred By: Silvana Ellis Date of Intervention: 03/12/2024 Time of Intervention: 10:46 Reason for Referral: Mental Health; Hx of Anxiety History obtained from: Medical records, mother of baby (MOB) and father of baby (FOB).? Household composition: MOB (Sherrie, age 29), FOB (Doug) and their children, [id number] son Ld and daughter Julia, born 03/11/2024. Patient's parent/guardian status: MOB and FOB have been together for 8 years and for 2. ??Both are actively involved and will be providing care for . MOB denied any concerns with domestic violence and described a positive and supportive relationship with the FOB. Medical History: ?: 2, para now 2.? MOB experienced an ectopic on 05/24/23. MOB received PNC through [place] beginning at 7 weeks and 0 days.? Visits were routine. Apgars: 8 and 9. Weight: 8 pounds, 0 ounces. ?Support Worker: Dr. Aguilar. Educational Status: MOB and FOB denied any issues or concerns with reading or writing. MOB has some college, no degree and FOB earned a BS in Computer Science. Financial Status: MOB and FOB reported their income is sufficient to meet the needs of their family at this time. MOB is currently transitioning to a [id number] mom (SAHM) and FOGeraldine is currently employed time broker as a quality compliance manager. Supplies: MOB and FOB reported they have all the supplies they need for at this time including but not limited to: Car seat, bassinet, crib, diapers, bottles, 2 breast pumps and clothing. Childcare/Caregiver(s): NAHID identified herself as the primary caregiver of the children as a new SAHM however the FOB will also assist with caregiving during the times he?s at home. Transportation: MOB and FOB reported they are both licensed drivers and have 3 reliable vehicles to get ?to and from all medical appointments. No transportation issues identified. Programs/Agencies Involved: MOB and FOB denied any current programs or agencies involved at this time. Children Services/Legal Issues:? Denied. Behavioral Health Issues: ??Mental Health History: Both MOB and FOB are on medication for anxiety and both reported the medication is effective and manages symptoms.? NAHID reported she began suffering from anxiety after the ectopic .?Substance Use History: Denied.?Family History: ALISON?s side of the family: had an uncle who is now that was Bipolar and an alcoholic. No other family history of drug or alcohol abuse or mental health was identified. ???Drug Screens: None obtained at the time of this admission. ?? Family/Social Stressors: ?MOB and FOB denied any current family or social stressors. Support Systems: Ample.? MOB and FOB identified their biggest supports as both of their parents as well as both of their siblings, all who live close by. MOB and FOB also described each other as supports. Depression/Shaken Baby/Safe Sleeping: human services worker provided verbal and written education on PPD, Safe Sleeping and Shaken Baby.? Parents verbalized an understanding. ??? ASSESSMENT:? MOB and FOB provided consent to social work visit. Upon arrival, Gonzales was at the end of getting a bath from a nurse. MOB and FOB were standing close by. After the bath, MOB and FOB got dressed and MOB sat with and began . Both MOB and FOB were ?verbally engaged and interactive.? human services worker observed positive interaction between MOB and FOB as well as towards . Both MOB and FOB were observed to help with the care of the during the visit, and both were observed to be attentive and gentle with . Both MOB and FOB appeared to be attached and bonded to . At the end of the assessment, social and human services assistant requested to speak with the MOB alone which MOB and FOB were both agreeable to. NAHID reported feeling safe in her home and denied any previous or current domestic violence, drug or alcohol abuse with self or the FOB or any unmanaged mental health concerns. No concerns noted or needs identified at this time. ? Safe Plan of Care for infant related to substance use: N/A; not needed. ? PLAN:? Baby to be discharged home when ready.? human services worker also provided written information on depression, depression resources and Help Me Grow as additional resources offered by social and human services assistant which MOB and FOB accepted. No other services requested or indicated. Kina Weiss, FIELD CLERK, MERCHANDISING REPRESENTATIVE
== END 2024-03-12 12:16 | disposition home or self-care (01) | DRG 807 ==
PROVIDERS: Admitting Provider Obstetrics & Gynecology; PCP Family Medicine; Referring Provider Obstetrics & Gynecology; Visit Provider Obstetrics & Gynecology
DX: O70.0 First degree perineal laceration during delivery (principal); Z37.0 Single live birth; O99.344 Other mental disorders complicating childbirth; F41.9 Anxiety disorder, unspecified; O48.0 Post-term pregnancy; O36.8330 Maternal care for abnormalities of the fetal heart rate or rhythm, third trimester, not applicable or unspecified; Z3A.40 40 weeks gestation of pregnancy
CPT/HCPCS: 59025; 59050; 85025; 86780; 86850; 86900; 86901; 99221; J7120; A4216; G0378; J2405